=== PATIENT | male | born 1975 | race Caucasian/White ===

== ENCOUNTER 2020-06-05 11:15 | Inpatient (IN) ==
[2020-06-05] MEDS ORDERED: SODIUM CHLORIDE 0.9% 1000ML 1,000 ML IV ONE ×2 (11:42→13:12)
[2020-06-05 12:34] LABS: Hematocrit (blood only) 17.8 % (42-52); Mean Corpuscular Hemoglobin 30.5 pg (25-34); Mean Corpuscular Hgb Conc 33.7 g/dL (32-36); Mean Corpuscular Volume 90.4 fL (80-100); Mean Platelet Volume 11.5 fL (7.4-10.4); Nucleated RBC # (auto) 0.03 K/uL (0-0); Nucleated RBC % (auto) 0.2 %; Platelet Count 128 K/uL (130-400); RDW Coefficient of Variation 14.6 % (11.5-14.5); RDW Standard Deviation 47.9 fL (36.4-46.3); Red Blood Count 1.97 M/uL (4.7-6.1); White Blood Count 12.71 K/uL (4.8-10.8)
[2020-06-05 12:40] LABS: INR 1.1 (0.9-1.1); Partial Thromboplastin Ratio 0.8; Partial Thromboplastin Time 23.2 Seconds (21.0-31.0); Prothrombin Time 11.7 Seconds (9.0-12.0)
[2020-06-05 12:43] LABS: Basophils # (auto) 0.01 K/uL (0-0.2); Basophils % (auto) 0.1 %; Eosinophils # (auto) 0.02 K/uL (0-0.5); Eosinophils % (auto) 0.2 %; Immature Granulocytes # (auto) 0.03 K/uL (0.00-0.02); Immature Granulocytes % (auto) 0.2 %; Lymphocytes # (auto) 1.14 K/uL (1.2-3.4); Monocytes # (auto) 0.89 K/uL (0.11-0.59); Neutrophils # (auto) 10.62 K/uL (1.4-6.5); Neutrophils % (auto) 83.5 %; RBC Morphology Unremarkable
[2020-06-05 12:45] LABS: Alanine Aminotransferase 13 U/L (12-78); Albumin Level 2.7 gm/dl (3.4-5.0); Aspartate Aminotransferase 5 U/L (15-37); BUN Creatinine Ratio 58.5 (10-20); Bilirubin Direct < 0.1 mg/dl (0-0.2); Blood Urea Nitrogen 39 mg/dl (7-18); Calcium 7.3 mg/dl (8.5-10.1); Carbon Dioxide 23 mmol/L (21-32); Chloride 114 mmol/L (98-107); Creatinine Clr Calc Pharmacy 124.3 ml/min; Est GFR (African American) 133.6; Est GFR (Non-African American) 115.2; Glucose 118 mg/dl (70-99); Lipase 120 U/L (73-393); Magnesium 1.7 mg/dl (1.8-2.4); Potassium 3.7 mmol/L (3.5-5.1); Sodium 142 mmol/L (136-145)
[2020-06-05] MEDS ORDERED: SODIUM CHLORIDE 0.9% 250 ML IV PRN ×2 (12:48→20:43)
[2020-06-05] MEDS ORDERED: PANTOprazole 40 MG in SYRINGE 0 ML IV ONE (12:48)
[2020-06-05 12:59] LABS: Alkaline Phosphatase 32 U/L (45-117); Bilirubin,Total 0.1 mg/dl (0.2-1); Globulin 2.6 gm/dl (2.5-4.0); Phosphorus 1.8 mg/dl (2.5-4.9); Thyroid Stimulating Hormone 0.515 uIu/ml (0.300-4.500); Total Protein 5.3 gm/dl (6.4-8.2); Troponin I 0.134 ng/ml (0-0.045)
--- NOTE | 2020-06-05 13:06 | XRay Report ---
XR chest 1V portable HISTORY: Atypical Chest Pain COMPARISON: None. FINDINGS: Severe S-shaped scoliosis of the thoracolumbar spine. The cardiac silhouette is top normal in size. No pneumothorax. No pleural effusions. No focal lung consolidations to suggest pneumonia. No evidence for pulmonary edema. IMPRESSION: 1. No acute process within the chest. 2. Severe S-shaped scoliosis of the thoracolumbar spine. ACT 112: Negative or not required by law. Electronically signed by: Janak Goldberg M.D. 06/05/2020 1:05 PM
[2020-06-05 13:10] LABS: Appearance Urine Clear (Clear); Bilirubin Urine Negative (Negative); Blood Urine Negative (Negative); Color Urine Yellow; Glucose Urine UA Negative (Negative); Ketones Urine Trace (Negative); Leukocyte Esterase Urine Negative (Negative); Nitrite Urine Negative (Negative); Protein Urine Negative (Negative); Specific Gravity Urine 1.015 (1.000-1.030); Urobilinogen Urine Negative (Negative)
[2020-06-05] MEDS: MAGNESIUM SULFATE / D5W 1 GM/100 ML BAG IV SCH ×4 (13:14→18:10)
[2020-06-05] MEDS ORDERED: IOVERSOL 100ml IV ONE (13:35)
--- NOTE | 2020-06-05 13:48 | CT Scan Report ---
CT SCAN OF THE ABDOMEN AND PELVIS WITH IV CONTRAST CLINICAL HISTORY: Anemia. Melanotic stool. COMPARISON STUDY: No priors. TECHNIQUE: Following the IV administration of 93 cc of Optiray 320, CT scan of the abdomen and pelvi s is performed from the lung bases to the proximal femora. Images are reviewed in the axial, sagittal , and coronal planes. IV contrast was administered without complication. A dose lowering technique wa s utilized adhering to the principles of ALARA. CT DOSE: 290.52 mGy.cm FINDINGS: Lung bases: The heart is normal in size and without pericardial effusion. The lung bases are clear. Liver: The contrast-enhanced liver is normal in size, contour, and attenuation. There is no intrahepa tic biliary ductal dilatation. The hepatic veins and portal veins are patent. Gallbladder: There is a calcified gallstone with no CT evidence of acute cholecystitis. Spleen: Normal in size and attenuation. Pancreas: Unremarkable. Adrenal glands: Unremarkable. Kidneys: The contrast enhanced kidneys are normal in size and without hydronephrosis. The kidneys enh ance symmetrically. A 1.6 cm cyst is noted in the right kidney. A subcentimeter cortical hypodensity in the left kidney also likely represents a cyst but is too small for definitive characterization. Abdominal vasculature: The abdominal aorta is normal in course and caliber noting mild atheroscleroti c calcification. Bowel: The small bowel and colon are normal in course and caliber. The appendix is well-visualized a nd normal. Peritoneum: There is no intraperitoneal free air or abdominal ascites. Lymphadenopathy: None. Pelvic viscera: The bladder is distended but otherwise normal in appearance. The prostate and seminal vesicles are normal as visualized. Skeletal structures: No lytic or blastic lesions are seen. There is moderate thoracolumbar scoliosis. There are bilateral pars defects at L5. IMPRESSION: 1. There are no acute infectious or inflammatory findings in the abdomen or pelvis. 2. Cholelithiasis. ACT 112: Negative or not required by law. Electronically signed by: Osbaldo Savage M.D. 06/05/2020 1:46 PM
--- NOTE | 2020-06-05 13:52 | Emergency Department Note ---
Impression & Plan Symptomatic anemia, WPW (Rfenk-Jvrwmgnxu-Svdnw syndrome), Acute upper gastrointestinal bleeding, SVT (supraventricular tachycardia), Hypomagnesemia, Hypophosphatemia ED Provider Note NAME: GREGG [id number] Nisreen DETEMPLE AGE: 45 SEX: M ARRIVES VIA: Ambulance INFORMANT: Patient, ED PROVIDER(S): Kris Urban MD CHIEF COMPLAINT: Palpitations, weakness PLAN: Disposition: Admit MEDICAL DECISION MAKING: The patient is a pleasant 45-year-old gentleman, current inmate at [facility] who presents emergency department after having episode of tachycardia with heart racing, lightheadedness that he noticed today found to have a heart rate in the low 200s but he was given adenosine by EMS prior to arrival with subsequent improvement in rate to the 130s-140s and improvement in symptoms. Prior to today the patient denies any fevers, cough, nausea, vomiting, diarrhea. However, he does report noticing black stool over the past 48 hours and having increased shortness of breath with exertion and sensing repeat episodes of his heart racing but these stopped on their own. He reports his history of WPW intermittently recurs but resolves on its own. He reports he is not on medications for this. On arrival the patient is fatigued appearing but no acute distress, with temp of 37.7 and heart rate in the 130s and vital signs otherwise stable. He appears clinically dry with mild pallor to his skin. Abdomen is benign. Rectal exam does demonstrate melena that is Hemoccult positive. EKG demonstrates sinus tachycardia without overt ST elevation. WBC 12.7, nonspecific. H/H 6/17.8 without prior values for comparison. Platelets 128K also without prior values for comparison. Chemistry without acidosis. BUN is elevated at 39, which in the setting of the patient's melena is suggestive of upper GI bleed. Phosphorus 1.8 and magnesium 1.7 with repletion provided. Troponin 0.134 likely related to demand in the setting of the patient's heart rate and anemia. COVID-19 RNA, NAAT test was negative. UA negative for infection. Patient was consented and ordered for 2 units PRBCs for his symptomatic anemia. Of note, the patient did have a recurrence of his SVT to the 200s following a bowel movement which eventually resolved spontaneously and did not require additional antiarrhythmics. Given the patient's anemia we will proceed with transfusion and hold on additional antiarrhythmics for now unless his episode recurs. CT abdomen pelvis was performed and negative for acute process. Patient is agreeable with recommendation for admission. Case was discussed with Dr. Cotton, [facility] hospitalist, who will evaluate the patient for admission. Triage Nursing notes reviewed and agree them. Prior medical records reviewed Vital Signs: reviewed and remarkable for no significant abnormalities Differential diagnosis: Premature contractions, electrolyte abnormality, cardiac dysrhythmia, thyroid dysfunction, pulmonary embolism, infection, gastrointestinal, as well as other pathologies. ER treatment provided: See below. Diagnostics interpreted by me: ECG: Sinus tachycardia, 130 bpm, no ectopy, no overt ST elevation or depression, QTC 441, QRS 84. Cardiac Monitoring: An order for continuous cardiac monitoring was placed and demonstrated Sinus tachycardia, 130 bpm, no ectopy, brief episode of SVT to 200s. Laboratory studies: See below Imaging studies: CT SCAN OF THE ABDOMEN AND PELVIS WITH IV CONTRAST CLINICAL HISTORY: Anemia. Melanotic stool. COMPARISON STUDY: No priors. TECHNIQUE: Following the IV administration of 93 cc of Optiray 320, CT scan of the abdomen and pelvis is performed from the lung bases to the proximal femora. Images are reviewed in the axial, sagittal, and coronal planes. IV contrast was administered without complication. A dose lowering technique was utilized adher ing to the principles of ALARA. CT DOSE: 290.52 mGy.cm FINDINGS: Lung bases: The heart is normal in size and without pericardial effusion. The lung bases are clear. Liver: The contrast-enhanced liver is normal in size, contour, and attenuation. There is no intrahepatic biliary ductal dilatation. The hepatic veins and portal veins are patent. Gallbladder: There is a calcified gallstone with no CT evidence of acute cholecystitis. Spleen: Normal in size and attenuation. Pancreas: Unremarkable. Adrenal glands: Unremarkable. Kidneys: The contrast enhanced kidneys are normal in size and without hydronephrosis. The kidneys enhance symmetrically. A 1.6 cm cyst is noted in the right kidney. A subcentimeter cortical hypodensity in the left kidney also likely represents a cyst but is too small for definitive characterization. Abdominal vasculature: The abdominal aorta is normal in course and caliber noting mild atherosclerotic calcification. Bowel: The small bowel and colon are normal in course and caliber. The appendix is well-visualized and normal. Peritoneum: There is no intraperitoneal free air or abdominal ascites. Lymphadenopathy: None. Pelvic viscera: The bladder is distended but otherwise normal in appearance. The prostate and seminal vesicles are normal as visualized. Skeletal structures: No lytic or blastic lesions are seen. There is moderate thoracolumbar scoliosis. There are bilateral pars defects at L5. IMPRESSION: 1. There are no acute infectious or inflammatory findings in the abdomen or pelvis. 2. Cholelithiasis. Consultation(s): Case was discussed with Dr. Adams, [facility] hospitalist, who will evaluate the patient for admission. HPI: The patient is a pleasant 45-year-old gentleman, current inmate at [facility] who presents emergency department after having episode of tachycardia with heart racing, lightheadedness that he noticed today found to have a heart rate in the low 200s but he was given adenosine by EMS prior to arrival with subsequent improvement in rate to the 130s-140s and improvement in symptoms. Prior to today the patient denies any fevers, cough, nausea, vomiting, diarrhea. However, he does report noticing black stool over the past 48 hours and having increased shortness of breath with exertion and sensing repeat episodes of his heart racing but these stopped on their own. He reports his history of WPW intermittently recurs but resolves on its own. He reports he is not on medications for this. ROS: See above HPI for pertinent positives & negatives. A total of 10 systems reviewed and were otherwise negative. PAST MEDICAL HISTORY:See Below PAST SURGICAL HISTORY:See Below FAMILY HISTORY:See Below SOCIAL HISTORY:See Below HOME MEDICATIONS:See Below ALLERGIES:See Below VITALS:See Below PHYSICAL EXAMINATION: GENERAL: Awake, alert, fatigued-appearing, in no distress HENT: Normocephalic, atraumatic. Oropharynx with dry mucous membranes and otherwise unremarkable. EYES: Normal conjunctiva. Sclera non-icteric. NECK: Supple. No nuchal rigidity. FROM. No JVD. RESPIRATORY: Clear to auscultation. CARDIAC: Regular rate, normal rhythm. Extremities warm and well perfused. Pulses equal. ABDOMEN: Soft, non-distended. No tenderness to palpation. No rebound or guarding. No masses. RECTAL: Melena. Hemoccult positive. MUSCULOSKELETAL: Chest examination reveals no tenderness. The back is symmetrical on inspection without obvious abnormality. There is no CVA tenderness to palpation. No joint edema. LOWER EXTREMITIES: Calves are equal size bilaterally and non-tender. No edema. No discoloration. NEURO: Normal sensorium. No sensory or motor deficits noted. SKIN: Moderate pallor. No rash or jaundice noted. ED COURSE: Critical Care: I have personally spent greater than 75 minutes of critical care time in the direct management of this patient. This includes bedside care, interpretation of diagnostic studies, and testing, discussion with consultants, patient, and family members, and other required patient management activities. This 75 minutes is in excess of all separately billable procedures. 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/o ablation Surgical History H/O hernia repair in his 20s - inguinal Family History Other Unknown family medical history Social History Smoking Status: Former smoker Tobacco Type: Cigarettes Smoking End Date: quit when prisons banned tobacco; Second Hand Exposure: No; Do You Dip or Chew Tobacco: No; Hx Alcohol Use: No Hx Substance Use: No Preferred Language: Ecuadorean Communication Ability: Effective Beliefs That Will Affect Care: None Current Living Situation: Other Current Living Situation Comment: [facility] current occupational status: other Other Information That Helps Us Care for You: No Feels Safe at Home: Yes Safety Concerns: Feels Safe At This Time Assistive Devices: None Allergies Allergies Allergy/AdvReac Type Severity Reaction Status Date / Time aspirin AdvReac Unknown Unknown Unverified 06/05/20 11:48 Home Meds Home Medications Medication Instructions Recorded Confirmed No Known Home Medications 06/05/20 06/05/20 Results & Data (ED) Vital Signs Vital Signs - 24 hr 06/05/20 11:21 06/05/20 12:04 06/05/20 14:04 Temperature 37.7 C H Temperature Source Oral Pulse Rate 132 H Pulse Rate [Apical] 133 H 139 H Respiratory Rate 18 16 20 Respiratory Effort / Characteristics Non-Labored Spontaneous Respiratory Depth Normal Respiratory Pattern Regular Blood Pressure 129/74 Blood Pressure [Right Arm] 133/77 122/78 Blood Pressure Mean 92 Blood Pressure Mean [Right Arm] 95 92 Pulse Oximetry 97 100 97 Oxygen Delivery Method Room Air Room Air Room Air Sepsis Recent Fever Within 48 Hours No Sepsis New/Unexplained Change in Mental Status No Sepsis Action Taken by Nursing No Action Required 06/05/20 14:36 06/05/20 14:42 06/05/20 15:03 Temperature 38 C H 38.1 C H Temperature Source Oral Oral Pulse Rate 147 H 142 H 138 H Pulse Rate [Apical] Respiratory Rate 18 20 20 Respiratory Effort / Characteristics Respiratory Depth Respiratory Pattern Blood Pressure 124/88 120/83 112/79 Blood Pressure [Right Arm] Blood Pressure Mean 100 95 90 Blood Pressure Mean [Right Arm] Pulse Oximetry 100 99 98 Oxygen Delivery Method Sepsis Recent Fever Within 48 Hours Sepsis New/Unexplained Change in Mental Status Sepsis Action Taken by Nursing 06/05/20 15:08 06/05/20 15:37 06/05/20 15:46 Temperature 38.1 C H 37.7 C H 38 C H Temperature Source Oral Oral Oral Pulse Rate 138 H 124 H 136 H Pulse Rate [Apical] Respiratory Rate 20 20 20 Respiratory Effort / Characteristics Respiratory Depth Respiratory Pattern Blood Pressure 124/84 119/91 120/88 Blood Pressure [Right Arm] Blood Pressure Mean 97 100 98 Blood Pressure Mean [Right Arm] Pulse Oximetry 98 98 Oxygen Delivery Method Sepsis Recent Fever Within 48 Hours Sepsis New/Unexplained Change in Mental Status Sepsis Action Taken by Nursing Laboratory Data Attestation: I reviewed the patient's lab results. Result diagrams: 06/05/20 19:51 06/05/20 12:14 Lab Results 06/05/20 06/05/20 06/05/20 Range/Units 11:50 11:50 12:14 WBC 12.71 H (4.8-10.8) K/uL RBC 1.97 L (4.7-6.1) M/uL Hgb 6.0 L* (14.0-18.0) g/dL Hct 17.8 L* (42-52) % MCV 90.4 (80-100) fL MCH 30.5 (25-34) pg MCHC 33.7 (32-36) g/dL RDW Std Deviation 47.9 H (36.4-46.3) fL RDW Coeff of Sherron 14.6 H (11.5-14.5) % Plt Count 128 L (130-400) K/uL MPV 11.5 H (7.4-10.4) fL Immature Gran % (Auto) 0.2 % Neut % (Auto) 83.5 % Lymph % (Auto) 9.0 % [place] % (Auto) 7.0 % Eos % (Auto) 0.2 % Baso % (Auto) 0.1 % Neut # (Auto) 10.62 H (1.4-6.5) K/uL Lymph # (Auto) 1.14 L (1.2-3.4) K/uL [place] # (Auto) 0.89 H (0.11-0.59) K/uL Eos # (Auto) 0.02 (0-0.5) K/uL Baso # (Auto) 0.01 (0-0.2) K/uL Immature Gran # (Auto) 0.03 H (0.00-0.02) K/uL Absolute Nucleated RBC 0.03 H (0-0) K/uL Nucleated RBC % (auto) 0.2 % RBC Morphology Unremarkable PT (9.0-12.0) Seconds INR (0.9-1.1) APTT (21.0-31.0) Seconds PTT Ratio Sodium (136-145) mmol/L Potassium (3.5-5.1) mmol/L Chloride (98-107) mmol/L Carbon Dioxide (21-32) mmol/L Anion Gap (3-11) BUN (7-18) mg/dl Creatinine (0.6-1.4) mg/dl Est Cr Clr Drug Dosing ml/min Est GFR ( Amer) Est GFR (Non-Af Amer) BUN/Creatinine Ratio (10-20) Glucose (70-99) mg/dl Calcium (8.5-10.1) mg/dl Phosphorus (2.5-4.9) mg/dl Magnesium (1.8-2.4) mg/dl Transferrin (200-360) mg/dl Ferritin (8-388) ng/ml Total Bilirubin (0.2-1) mg/dl Direct Bilirubin (0-0.2) mg/dl AST (15-37) U/L ALT (12-78) U/L Alkaline Phosphatase (45-117) U/L Troponin I (0-0.045) ng/ml Total Protein (6.4-8.2) gm/dl Albumin (3.4-5.0) gm/dl Globulin (2.5-4.0) gm/dl Albumin/Globulin Ratio (0.9-2) Lipase (73-393) U/L Procalcitonin (0-0.5) ng/ml TSH (0.300-4.500) uIu/ml Urine Color Urine Appearance (Clear) Urine pH (4.5-7.5) Ur Specific [place] (1.000-1.030) Urine Protein (Negative) Urine Glucose (UA) (Negative) Urine Ketones (Negative) Urine Blood (Negative) Urine Nitrite (Negative) Urine Bilirubin (Negative) Urine Urobilinogen (Negative) Ur Leukocyte Esterase (Negative) COVID-19 Eval [facility] SARS-[facility]-2, RNA, NAAT NEGATIVE (NEGATIVE) Blood Type Blood Type Recheck Antibody Screen Crossmatch 06/05/20 06/05/20 06/05/20 Range/Units 12:14 12:14 12:14 WBC (4.8-10.8) K/uL RBC (4.7-6.1) M/uL Hgb (14.0-18.0) g/dL Hct (42-52) % MCV (80-100) fL MCH (25-34) pg MCHC (32-36) g/dL RDW Std Deviation (36.4-46.3) fL RDW Coeff of Sherron (11.5-14.5) % Plt Count (130-400) K/uL MPV (7.4-10.4) fL Immature Gran % (Auto) % Neut % (Auto) % Lymph % (Auto) % [place] % (Auto) % Eos % (Auto) % Baso % (Auto) % Neut # (Auto) (1.4-6.5) K/uL Lymph # (Auto) (1.2-3.4) K/uL [place] # (Auto) (0.11-0.59) K/uL Eos # (Auto) (0-0.5) K/uL Baso # (Auto) (0-0.2) K/uL Immature Gran # (Auto) (0.00-0.02) K/uL Absolute Nucleated RBC (0-0) K/uL Nucleated RBC % (auto) % RBC Morphology PT 11.7 (9.0-12.0) Seconds INR 1.1 (0.9-1.1) APTT 23.2 (21.0-31.0) Seconds PTT Ratio 0.8 Sodium 142 (136-145) mmol/L Potassium 3.7 (3.5-5.1) mmol/L Chloride 114 H (98-107) mmol/L Carbon Dioxide 23 (21-32) mmol/L Anion Gap 5.0 (3-11) BUN 39 H (7-18) mg/dl Creatinine 0.67 (0.6-1.4) mg/dl Est Cr Clr Drug Dosing 124.3 ml/min Est GFR ( Amer) 133.6 Est GFR (Non-Af Amer) 115.2 BUN/Creatinine Ratio 58.5 H (10-20) Glucose 118 H (70-99) mg/dl Calcium 7.3 L (8.5-10.1) mg/dl Phosphorus 1.8 L (2.5-4.9) mg/dl Magnesium 1.7 L (1.8-2.4) mg/dl Transferrin (200-360) mg/dl Ferritin (8-388) ng/ml Total Bilirubin 0.1 L (0.2-1) mg/dl Direct Bilirubin < 0.1 (0-0.2) mg/dl AST 5 L (15-37) U/L ALT 13 (12-78) U/L Alkaline Phosphatase 32 L (45-117) U/L Troponin I 0.134 H* (0-0.045) ng/ml Total Protein 5.3 L (6.4-8.2) gm/dl Albumin 2.7 L (3.4-5.0) gm/dl Globulin 2.6 (2.5-4.0) gm/dl Albumin/Globulin Ratio 1.0 (0.9-2) Lipase 120 (73-393) U/L Procalcitonin (0-0.5) ng/ml TSH 0.515 (0.300-4.500) uIu/ml Urine Color Urine Appearance (Clear) Urine pH (4.5-7.5) Ur Specific [place] (1.000-1.030) Urine Protein (Negative) Urine Glucose (UA) (Negative) Urine Ketones (Negative) Urine Blood (Negative) Urine Nitrite (Negative) Urine Bilirubin (Negative) Urine Urobilinogen (Negative) Ur Leukocyte Esterase (Negative) COVID-19 Eval Order SARS-CoV-2, RNA, NAAT (NEGATIVE) Blood Type Blood Type Recheck A Positive Antibody Screen Crossmatch 06/05/20 06/05/20 06/05/20 Range/Units 12:20 12:24 12:50 WBC (4.8-10.8) K/uL RBC (4.7-6.1) M/uL Hgb (14.0-18.0) g/dL Hct (42-52) % MCV (80-100) fL MCH (25-34) pg MCHC (32-36) g/dL RDW Std Deviation (36.4-46.3) fL RDW Coeff of Sherron (11.5-14.5) % Plt Count (130-400) K/uL MPV (7.4-10.4) fL Immature Gran % (Auto) % Neut % (Auto) % Lymph % (Auto) % [place] % (Auto) % Eos % (Auto) % Baso % (Auto) % Neut # (Auto) (1.4-6.5) K/uL Lymph # (Auto) (1.2-3.4) K/uL [place] # (Auto) (0.11-0.59) K/uL Eos # (Auto) (0-0.5) K/uL Baso # (Auto) (0-0.2) K/uL Immature Gran # (Auto) (0.00-0.02) K/uL Absolute Nucleated RBC (0-0) K/uL Nucleated RBC % (auto) % RBC Morphology PT (9.0-12.0) Seconds INR (0.9-1.1) APTT (21.0-31.0) Seconds PTT Ratio Sodium (136-145) mmol/L Potassium (3.5-5.1) mmol/L Chloride (98-107) mmol/L Carbon Dioxide (21-32) mmol/L Anion Gap (3-11) BUN (7-18) mg/dl Creatinine (0.6-1.4) mg/dl Est Cr Clr Drug Dosing ml/min Est GFR ( Amer) Est GFR (Non-Af Amer) BUN/Creatinine Ratio (10-20) Glucose (70-99) mg/dl Calcium (8.5-10.1) mg/dl Phosphorus (2.5-4.9) mg/dl Magnesium (1.8-2.4) mg/dl Transferrin 201 (200-360) mg/dl Ferritin 13.6 (8-388) ng/ml Total Bilirubin (0.2-1) mg/dl Direct Bilirubin (0-0.2) mg/dl AST (15-37) U/L ALT (12-78) U/L Alkaline Phosphatase (45-117) U/L Troponin I (0-0.045) ng/ml Total Protein (6.4-8.2) gm/dl Albumin (3.4-5.0) gm/dl Globulin (2.5-4.0) gm/dl Albumin/Globulin Ratio (0.9-2) Lipase (73-393) U/L Procalcitonin < 0.05 (0-0.5) ng/ml TSH (0.300-4.500) uIu/ml Urine Color Yellow Urine Appearance Clear (Clear) Urine pH 6.0 (4.5-7.5) Ur Specific [place] 1.015 (1.000-1.030) Urine Protein Negative (Negative) Urine Glucose (UA) Negative (Negative) Urine Ketones Trace H (Negative) Urine Blood Negative (Negative) Urine Nitrite Negative (Negative) Urine Bilirubin Negative (Negative) Urine Urobilinogen Negative (Negative) Ur Leukocyte Esterase Negative (Negative) COVID-19 Eval Order SARS-CoV-2, RNA, NAAT (NEGATIVE) Blood Type Blood Type Recheck Antibody Screen Crossmatch 06/05/20 Range/Units 13:22 WBC (4.8-10.8) K/uL RBC (4.7-6.1) M/uL Hgb (14.0-18.0) g/dL Hct (42-52) % MCV (80-100) fL MCH (25-34) pg MCHC (32-36) g/dL RDW Std Deviation (36.4-46.3) fL RDW Coeff of Sherron (11.5-14.5) % Plt Count (130-400) K/uL MPV (7.4-10.4) fL Immature Gran % (Auto) % Neut % (Auto) % Lymph % (Auto) % [place] % (Auto) % Eos % (Auto) % Baso % (Auto) % Neut # (Auto) (1.4-6.5) K/uL Lymph # (Auto) (1.2-3.4) K/uL [place] # (Auto) (0.11-0.59) K/uL Eos # (Auto) (0-0.5) K/uL Baso # (Auto) (0-0.2) K/uL Immature Gran # (Auto) (0.00-0.02) K/uL Absolute Nucleated RBC (0-0) K/uL Nucleated RBC % (auto) % RBC Morphology PT (9.0-12.0) Seconds INR (0.9-1.1) APTT (21.0-31.0) Seconds PTT Ratio Sodium (136-145) mmol/L Potassium (3.5-5.1) mmol/L Chloride (98-107) mmol/L Carbon Dioxide (21-32) mmol/L Anion Gap (3-11) BUN (7-18) mg/dl Creatinine (0.6-1.4) mg/dl Est Cr Clr Drug Dosing ml/min Est GFR ( Amer) Est GFR (Non-Af Amer) BUN/Creatinine Ratio (10-20) Glucose (70-99) mg/dl Calcium (8.5-10.1) mg/dl Phosphorus (2.5-4.9) mg/dl Magnesium (1.8-2.4) mg/dl Transferrin (200-360) mg/dl Ferritin (8-388) ng/ml Total Bilirubin (0.2-1) mg/dl Direct Bilirubin (0-0.2) mg/dl AST (15-37) U/L ALT (12-78) U/L Alkaline Phosphatase (45-117) U/L Troponin I (0-0.045) ng/ml Total Protein (6.4-8.2) gm/dl Albumin (3.4-5.0) gm/dl Globulin (2.5-4.0) gm/dl Albumin/Globulin Ratio (0.9-2) Lipase (73-393) U/L Procalcitonin (0-0.5) ng/ml TSH (0.300-4.500) uIu/ml Urine Color Urine Appearance (Clear) Urine pH (4.5-7.5) Ur Specific [place] (1.000-1.030) Urine Protein (Negative) Urine Glucose (UA) (Negative) Urine Ketones (Negative) Urine Blood (Negative) Urine Nitrite (Negative) Urine Bilirubin (Negative) Urine Urobilinogen (Negative) Ur Leukocyte Esterase (Negative) COVID-19 Eval Order SARS-CoV-2, RNA, NAAT (NEGATIVE) Blood Type A Positive Blood Type Recheck Antibody Screen NEGATIVE Crossmatch See Detail Administered Medications Potassium Chloride/Dextrose/Sod Cl (D5nss + 20meq Kcl) 20 meq in 1,000 mls @ 125 mls/hr IV .Q8H SHANNON Stop: 07/05/20 15:59 Last Admin: 06/05/20 17:33 Dose: 125 mls/hr Documented by: [id number] Pantoprazole Sodium 40 mg/ (Dextrose) 100 mls @ 20 mls/hr IV Q5H SHANNON Stop: 07/05/20 17:19 Last Admin: 06/05/20 17:34 Dose: 8 mg/hr, 20 mls/hr Documented by: [id number] Discontinued Medications Acetaminophen (Acetaminophen 500 Mg Tab) 1,000 mg PO NOW STA Stop: 06/05/20 15:54 Last Admin: 06/05/20 16:07 Dose: 1,000 mg Documented by: [id number] Sodium Chloride (Nss 1000ml) 1,000 mls @ 999 mls/hr IV .Q1H1M ONE Stop: 06/05/20 12:42 Last Infusion: 06/05/20 12:45 Dose: 0 mls/hr Documented by: [id number] Admin: 06/05/20 11:58 Dose: 999 mls/hr Documented by: [id number] Magnesium Sulfate/Dextrose (Magnesium Sulfate / D5w) 1 gm in 100 mls @ 100 mls/hr IV Q1H SHANNON Stop: 06/05/20 14:47 Last Infusion: 06/05/20 15:19 Dose: 0 mls/hr Documented by: [id number] Admin: 06/05/20 14:19 Dose: 100 mls/hr Documented by: [id number] Infusion: 06/05/20 14:17 Dose: 0 mls/hr Documented by: [id number] Admin: 06/05/20 13:14 Dose: 100 mls/hr Documented by: [id number] Pantoprazole Sodium 40 mg/ (Syringe) 10 mls @ 5 mls/min IV NOW ONE Stop: 06/05/20 12:49 Last Admin: 06/05/20 14:04 Dose: 5 mls/min Documented by: [id number] Sodium Chloride (Nss 1000ml) 1,000 mls @ 999 mls/hr IV .Q1H1M ONE Stop: 06/05/20 14:12 Last Infusion: 06/05/20 14:23 Dose: 0 mls/hr Documented by: [id number] Admin: 06/05/20 13:14 Dose: 999 mls/hr Documented by: [id number] Magnesium Sulfate/Dextrose (Magnesium Sulfate / D5w) 1 gm in 100 mls @ 100 mls/hr IV Q1H SHANNON Stop: 06/05/20 16:11 Last Infusion: 06/05/20 19:27 Dose: 0 mls/hr Documented by: [id number] Admin: 06/05/20 18:10 Dose: 100 mls/hr Documented by: [id number] Admin: 06/05/20 15:20 Dose: Not Given Documented by: [id number] Potassium Phosphate 15 mmol/ (Sodium Chloride) 255 mls @ 102 mls/hr IV ONE ONE Stop: 06/05/20 16:59 Last Infusion: 06/05/20 18:12 Dose: 0 mls/hr Documented by: [id number] Admin: 06/05/20 15:20 Dose: 102 mls/hr Documented by: [id number] Ioversol (Ioversol 100ml) 93 ml IV ONCE ONE Stop: 06/05/20 13:36 Last Admin: 06/05/20 13:35 Dose: 93 ml Documented by: [id number] Discharge Plan Visit Data Chief Complaint: Cardiac Assessment Stated Complaint: Cardiac ED Provider: Kris Urban Discharge Problem: Symptomatic anemia, WPW (Vdpbw-Ezrhgwsxs-Hiizy syndrome), Acute upper gastr ointestinal bleeding, SVT (supraventricular tachycardia), Hypomagnesemia, Hypophosphatemia Patient Disposition: Admitted As Inpatient Discharge Instructions Interventions: ED Discharge Assessment Last Done: 06/05/20 16:12
[2020-06-05] MEDS ORDERED: POTASSIUM PHOS 3 MMOL/1 ML INFUSION IV STA (14:11)
[2020-06-05] MEDS ORDERED: POTASSIUM PHOSPHATE 15 MMOL in SODIUM CHLORIDE 0.9% 250 ML IV ONE (14:30)
[2020-06-05 14:38] LABS: Ferritin 13.6 ng/ml (8-388)
--- NOTE | 2020-06-05 15:21 | History & Physical Report ---
Date of Service June 05, 2020 Assessment & Plan (1) Acute upper gastrointestinal bleeding: Per ER attending his [facility] revealed gross melena with heme+ stool. Patient himself has had melena for the past 2 days. Ferritin is very low suggesting chronic GI blood loss for much, much longer time period than just 2 days. Sedq-sof-muon he has severe symptomatic anemia from his GI blood loss. NPO. IV PPI drip. IV fluids. Tx 2 units PRBCs now; may need additional units beyond that. I spoke with Dr Franco from [facility] who will consult in am and likely perform endoscopic evaluation. No PUD risk factors other than occasional motrin use. Await EGD, other testing. Consider IV venofer while here. (2) Acute blood loss anemia: as above. Tx PRBCs. trend his CBC. checked FE studies - c/w severe Fe deficiency anemia. (3) Symptomatic anemia: as above. interestingly, despite melena stool and Fe deficiency, his MCV is normal suggesting "mixed" picture. check b12/folate levels. replace as needed. Tx PRBCs. (4) WPW (Qmgfw-Pjslxywwx-Fnlab syndrome): history of such. no prior ablation procedure. I have asked Dr Ross from [facility] cardiology to consult for this issue. Treat the anemia. Place on telemetry. Keep electrolytes wnl. (5) Hypomagnesemia: replete, repeat level am (6) History of asthma: noted asymptomatic at this time (7) Migraines: none at this time (8) Fever: low grade temp of 37.7 at time of presentation today. this was BEFORE the packed red cells were given. COVID0 [address] abd/pelvis without source of fever/infection. cxr negative. need to follow temps carefully. there has been considerable COVID at the custodial where he lives - if fevers persist consider repeat COVID test. (9) DVT prophylaxis: SCDs chemical means contraindicated History of Present Illness Chief Complaint: dark stools Primary Care Provider: [facility] 45yo male with history of WPW syndrome presents with 2 days of dark stools. He also noted tachycardia 2 days ago when he first noted the dark stools. He had associated dyspnea when the tachycardia occurred. His tachycardia is particularly noticeable when he is trying to have a bowel movement. In between episodes of tachycardia and the dark stools he states "I feel fine." He then had tachycardia with dyspnea yesterday during another bowel movement episode. The stool was again once dark. Upon arrival to [facility] today hemoglobin VERY low at 6. He adamantly reports he has had NO melena or BRBPR on chronic basis prior to 2 days ago. He mentions a h/o "IBS" and chronic diarrhea. States that about 20 years ago he was diagnosed with "malnourishment" and Fe deficiency along with "some other deficiency." He denies ever having ablation or Rx for his WPW syndrome. Occasional motrin use for migraines but nothing on regular basis. By ER personnel report the patient had narrow complex tachycardia up to about 200 BPM after he got up to use the bathroom. While having a bowel movement the HR improved from 200 back down to 130s. Allergies Allergy/AdvReac Type Severity Reaction Status Date / Time aspirin AdvReac Unknown Unknown Unverified 06/05/20 11:48 Home Medications Medication Instructions Recorded Confirmed Type No Known Home Medications 06/05/20 06/05/20 History Past Med/Surg History Medical History H/O caloric malnutrition H/O iron deficiency History of asthma Migraines Pectus excavatum Scoliosis WPW (Fvyjf-Ogphwrrmt-Lcozh syndrome) no h/o ablation Surgical History H/O hernia repair in his 20s - inguinal Family History Other Unknown family medical history Social History Smoking Status: Former smoker Tobacco Type: Cigarettes Smoking End Date: quit when prisons banned tobacco; Second Hand Exposure: No; Do You Dip or Chew Tobacco: No; Hx Alcohol Use: No Hx Substance Use: No Preferred Language: Korean Communication Ability: Effective Beliefs That Will Affect Care: None Current Living Situation: Other Current Living Situation Comment: custodial current occupational status: other Other Information That Helps Us Care for You: No Feels Safe at Home: Yes Safety Concerns: Feels Safe At This Time Assistive Devices: None Review of Systems Constitutional: no fever, no chills, no fatigue, no anorexia and no weight loss Eyes: no worsening vision Ear, Nose, Mouth, Throat: + sore throat (today only) Respiratory: + dyspnea on exertion; no cough Cardiovascular: + palpitations and + lightheadedness; no chest pain and no edema Gastrointestinal: + abdominal pain (upper - occasional), + diarrhea/loose stools (chronic -- due to "IBS") and + melena; no nausea and no vomiting Genitourinary: no dysuria Musculoskeletal: + back pain Integumentary: no rash Neurologic: no loss of sensation Psychiatric: no depression and no anxiety Endocrine: no h/o diabetes Hematologic / Lymphatic: no easy bleeding Physical Exam Constitutional: + thin; + not well developed, + not well nourished, no acute distress and no altered mental status Eyes: PERRL ENMT: Mouth: + tongue abnormality; oral mucous membranes not dry Neck: trachea midline, no thyromegaly Respiratory: normal respiratory effort, lungs clear to auscultation Cardiovascular: Rate/Rhythm: regular rhythm and + tachycardic Heart Sounds: normal S1 and normal S2; no murmur Vessels: posterior tibial pulses present and dorsalis pedis pulses present; no JVD Extremities: no edema Chest (Breasts): Chest: + abnormal inspection of chest (Very minimal pectus deformity ) Gastrointestinal (Abdomen): normal bowel sounds, soft, nontender, no hepatosplenomegaly Musculoskeletal: no cyanosis or clubbing, extremities motor strength 5/5 Spine: + scoliosis Skin: + pallor Neurologic: moves all extremities; no focal motor deficits Psychiatric: Orientation: alert and oriented x 3 Lymphatic: no cervical lymphadenopathy Results & Data Results & Data ([facility]) Vital Signs (Past 12 Hours) Vital Signs Temp Pulse Pulse Resp BP BP Pulse Ox 06/05/20 15:08 38.1 C H 138 H 20 124/84 98 06/05/20 15:03 138 H 20 112/79 98 06/05/20 14:42 38.1 C H 142 H 20 120/83 99 06/05/20 14:36 38 C H 147 H 18 124/88 100 06/05/20 14:04 139 H 20 122/78 97 06/05/20 12:04 133 H 16 133/77 100 06/05/20 11:21 37.7 C H 132 H 18 129/74 97 presenting Hb 6 albumin 2.7 Cr 0.67 ferritin 13 b12 290 folate wnl Diagnostic Findings CT abd/pelvis - no acute findings; gallstones EKG - sinus tach, no acute ST changes, no obvious delta wave cxr - no infiltrates; scolisosi Code Status & VTE Plan Code Status full VTE Prophylaxis Plan VTE Prophylaxis will be ordered: Yes PG Care Time/CCT Total # of Minutes Spent Total Time Spent with Patient: Total time spent is greater than 50% in coordination of care (as documented) at patient's floor/unit and/or counseling patient: Coding Level of Care Code 74247 Initial Inpt Care Lvl 3 Diagnoses Acute upper gastrointestinal bleeding K92.2 Acute blood loss anemia D62 Symptomatic anemia D64.9 WPW (Hktro-Ffcmqffjw-Ktfsd syndrome) I45.6 Hypomagnesemia E83.42 History of asthma Z87.09 Migraines G43.909 Fever R50.9 DVT prophylaxis Z29.9
--- NOTE | 2020-06-05 15:37 | Electrocardiogram Report ---
Test Reason : Blood Pressure : / mmHG Vent. Rate : 130 BPM Atrial Rate : 130 BPM P-R Int : 148 ms QRS Dur : 084 ms QT Int : 300 ms P-R-T Axes : 042 038 021 degrees QTc Int : 441 ms Poor data quality, interpretation may be adversely affected Sinus tachycardia Poor R wave progression, consider anterior [place] vs. lead placement vs. LVH Otherwise normal ECG No previous ECGs available Confirmed by Omi Ross ([id number]) on 06/05/2020 3:36:36 PM Referred By: [facility] Confirmed By:Rudolph Ross
[2020-06-05] MEDS ORDERED: ACETAMINOPHEN 500 MG TAB PO STA (15:53)
--- NOTE | 2020-06-05 16:58 | Cardiology Consultation ---
Date of Consultation June 05, 2020 Assessment & Plan (1) SVT (supraventricular tachycardia): He had a recorded episode of SVT during his emergency room evaluation. This was a narrow complex rhythm. His baseline EKG does not demonstrate any pre-excitation, although he is tachycardic at baseline and could have pre- excitation at lower heart rates. Without evidence of pre-excitation this represents a relatively benign phenomenon. His history would suggest the same as he has had frequent episodes over several decades. Even with evidence of pre-excitation at slower heart rates, is not likely to be a life-threatening or serious issue given his relatively advanced age. He may be more symptomatic currently and have higher heart rates currently due to his other metabolic derangements, specifically his profound anemia. While he may continue to have episodes of SVT, I suspect they will be less symptomatic and relatively slower once he has received his transfusion and volume resuscitation. I believe most of his episodes will be self-limited. He is fairly well-versed in the use of vagal maneuvers. However, for extended episodes adenosine could be used. Do not think he requires prophylactic treatment with either antiarrhythmics or AV shannon agents. I would hesitate to use AV shannon agents until we are confident he does not have some element of pre-excitation at lower heart rates. At some point we can have a discussion regarding catheter based therapy per (2) Elevated troponin: This is undoubtedly related to periods of tachycardia in the setting of profound anemia. Do not believe this is public health representative of an acute coronary syndrome. Chest pain does not appear to be a feature of his presentation. Treating his anemia and tachycardia are the primary concerns. As noted above, I think he will continue to have some episodes of tachycardia as this has been his pattern over many years. However, with improvement in his blood counts, I think we can avoid additional demand ischemia. I do not believe he requires any addit ional risk stratification for coronary disease in the absence of symptoms once his hemoglobin has returned to normal. History of Present Illness Reason for Consultation: Tachycardia Requesting Physician: Bryan Attending Physician: Ishmael Adams History of Present Illness The patient is a 45-year-old gentleman with a history of SVT who presented to the emergency room with symptoms palpitations and tachycardia. Patient states that he has fairly frequent episodes of palpitations and associated high heart rates. These are noticeable but do not appear to be associated with other significant symptoms. He has some minor discomfort in the left axillary area with episodes. They tend to occur when he feels hot or when it is hot outside. They can occur with significant activity at times. The generally are self- limited or occasionally terminated by vagal maneuvers. The episodes themselves have been present for nearly 30 years according to the patient. He has had an evaluation in the past and was told that he had Ylpxz-Jvqapworn-Tjhgh. It seems at 1 point he was scheduled for an ablation but this never occurred. He was tried on medical therapy as well, but this appeared to make his symptoms worse. He has not noticed a significant change in the frequency or nature of the symptoms until 2 days ago. He woke with an episode that was more severe and took quite some time to resolve. This morning he also woke with a rapid heartbeat. With ambulation and activity he felt mildly dizzy and more dyspneic than usual. He also felt weak. Based on the symptoms the patient was brought to the emergency room for evaluation. He was discovered to have a tachycardia EN route which responded to adenosine. Here in the emergency room he also had an episode of tachycardia associated with ambulation. This appeared to resolve with vagal maneuvers. He was also discovered to be severely anemic and did report having dark stools over the past 2 days. Allergies Allergy/AdvReac Type Severity Reaction Status Date / Time aspirin AdvReac Unknown Unknown Unverified 06/05/20 11:48 Home Medications Medication Instructions Recorded Confirmed Type No Known Home Medications 06/05/20 06/05/20 History Patient History Medical History H/O caloric malnutrition H/O iron deficiency History of asthma Migraines Pectus excavatum Scoliosis WPW (Wsbin-Uxgjevrlc-Optwu syndrome) no h/o ablation Surgical History H/O hernia repair in his 20s - inguinal Family History Other Unknown family medical history Social History Smoking Status: Never smoker Tobacco Type: Cigarettes Smoking End Date: quit when prisons banned tobacco; Hx Alcohol Use: No Hx Substance Use: No Current Living Situation: Other Current Living Situation Comment: [facility] current occupational status: other Feels Safe at Home: Yes Review of Systems Review of Systems: All systems reviewed & are unremarkable except as noted in HPI & below No abdominal pain. No nausea or vomiting. No history of syncope. Occasional migraines for which he takes aspirin or nonsteroidal medication. Physical Exam Physical Exam: The patient is alert and oriented. Mood and affect appeared normal. He answered all questions appropriately. HEENT: Pupils are equal and reactive to light and accommodation. Extraocular movements are intact. The sclerae are anicteric. Neuro: Cranial nerves intact (wearing mask) Neck: Patient's neck is supple. He has palpable carotid pulses bilaterally without bruits on auscultation. There is no evidence of jugular venous d istention. The thyroid is not enlarged. Lungs: Clear to auscultation bilaterally. He has good air movement without use of accessory muscles. No rales wheezes or rhonchi. Cardiac: Heart demonstrates an increased heart rate but regular rhythm. Normal S1 and S2. No murmurs on examination. Pulses: The patient has palpable radial pulses bilaterally that are equal in intensity Extremities: There was no evidence of hypoperfusion. There is no cyanosis or clubbing. There is no edema. Skin: I did not appreciate any rashes on examination today. Results & Data ([facility]) Vital Signs (Past 12 Hours) Vital Signs Temp Pulse Pulse Resp BP BP Pulse Ox 06/05/20 16:16 38.0 C H 134 H 20 113/79 98 06/05/20 16:01 38.2 C H 138 H 20 118/78 98 06/05/20 15:59 38.2 C H 133 H 18 120/88 98 06/05/20 15:46 38 C H 136 H 20 120/88 98 06/05/20 15:37 37.7 C H 124 H 20 119/91 06/05/20 15:08 38.1 C H 138 H 20 124/84 98 06/05/20 15:03 138 H 20 112/79 98 06/05/20 14:42 38.1 C H 142 H 20 120/83 99 06/05/20 14:36 38 C H 147 H 18 124/88 100 06/05/20 14:04 139 H 20 122/78 97 06/05/20 12:04 133 H 16 133/77 100 06/05/20 11:21 37.7 C H 132 H 18 129/74 97 Laboratory Results Abnormal Lab Results 06/05/20 06/05/20 06/05/20 11:50 11:50 12:14 WBC 12.71 H RBC 1.97 L Hgb 6.0 L* Hct 17.8 L* MCV 90.4 MCH 30.5 MCHC 33.7 RDW Std Deviation 47.9 H RDW Coeff of Sherron 14.6 H Plt Count 128 L MPV 11.5 H Immature Gran % (Auto) 0.2 Neut % (Auto) 83.5 Lymph % (Auto) 9.0 Luce % (Auto) 7.0 Eos % (Auto) 0.2 Baso % (Auto) 0.1 Neut # (Auto) 10.62 H Lymph # (Auto) 1.14 L Luce # (Auto) 0.89 H Eos # (Auto) 0.02 Baso # (Auto) 0.01 Immature Gran # (Auto) 0.03 H Absolute Nucleated RBC 0.03 H Nucleated RBC % (auto) 0.2 RBC Morphology Unremarkable PT INR APTT PTT Ratio Sodium Potassium Chloride Carbon Dioxide Anion Gap BUN Creatinine Est Cr Clr Drug Dosing Est GFR ( Amer) Est GFR (Non-Af Amer) BUN/Creatinine Ratio Glucose Calcium Phosphorus Magnesium Transferrin Ferritin Total Bilirubin Direct Bilirubin AST ALT Alkaline Phosphatase Troponin I Total Protein Albumin Globulin Albumin/Globulin Ratio Lipase TSH Urine Color Urine Appearance Urine pH Ur Specific [place] Urine Protein Urine Glucose (UA) Urine Ketones Urine Blood Urine Nitrite Urine Bilirubin Urine Urobilinogen Ur Leukocyte Esterase COVID-19 Eval Order Covid19 IDNow [facility] SARS-CoV-2, RNA, NAAT NEGATIVE Blood Type Blood Type Recheck Antibody Screen Crossmatch 06/05/20 06/05/20 06/05/20 12:14 12:14 12:14 WBC RBC Hgb Hct MCV MCH MCHC RDW Std Deviation RDW Coeff of Sherron Plt Count MPV Immature Gran % (Auto) Neut % (Auto) Lymph % (Auto) Luce % (Auto) Eos % (Auto) Baso % (Auto) Neut # (Auto) Lymph # (Auto) Luce # (Auto) Eos # (Auto) Baso # (Auto) Immature Gran # (Auto) Absolute Nucleated RBC Nucleated RBC % (auto) RBC Morphology PT 11.7 INR 1.1 APTT 23.2 PTT Ratio 0.8 Sodium 142 Potassium 3.7 Chloride 114 H Carbon Dioxide 23 Anion Gap 5.0 BUN 39 H Creatinine 0.67 Est Cr Clr Drug Dosing 124.3 Est GFR ( Amer) 133.6 Est GFR (Non-Af Amer) 115.2 BUN/Creatinine Ratio 58.5 H Glucose 118 H Calcium 7.3 L Phosphorus 1.8 L Magnesium 1.7 L Transferrin Ferritin Total Bilirubin 0.1 L Direct Bilirubin < 0.1 AST 5 L ALT 13 Alkaline Phosphatase 32 L Troponin I 0.134 H* Total Protein 5.3 L Albumin 2.7 L Globulin 2.6 Albumin/Globulin Ratio 1.0 Lipase 120 TSH 0.515 Urine Color Urine Appearance Urine pH Ur Specific [place] Urine Protein Urine Glucose (UA) Urine Ketones Urine Blood Urine Nitrite Urine Bilirubin Urine Urobilinogen Ur Leukocyte Esterase COVID-19 Eval Order SARS-CoV-2, RNA, NAAT Blood Type Blood Type Recheck A Positive Antibody Screen Crossmatch 06/05/20 06/05/20 06/05/20 12:24 12:50 13:22 WBC RBC Hgb Hct MCV MCH MCHC RDW Std Deviation RDW Coeff of Sherron Plt Count MPV Immature Gran % (Auto) Neut % (Auto) Lymph % (Auto) Luce % (Auto) Eos % (Auto) Baso % (Auto) Neut # (Auto) Lymph # (Auto) Luce # (Auto) Eos # (Auto) Baso # (Auto) Immature Gran # (Auto) Absolute Nucleated RBC Nucleated RBC % (auto) RBC Morphology PT INR APTT PTT Ratio Sodium Potassium Chloride Carbon Dioxide Anion Gap BUN Creatinine Est Cr Clr Drug Dosing Est GFR ( Amer) Est GFR (Non-Af Amer) BUN/Creatinine Ratio Glucose Calcium Phosphorus Magnesium Transferrin 201 Ferritin 13.6 Total Bilirubin Direct Bilirubin AST ALT Alkaline Phosphatase Troponin I Total Protein Albumin Globulin Albumin/Globulin Ratio Lipase TSH Urine Color Yellow Urine Appearance Clear Urine pH 6.0 Ur Specific [place] 1.015 Urine Protein Negative Urine Glucose (UA) Negative Urine Ketones Trace H Urine Blood Negative Urine Nitrite Negative Urine Bilirubin Negative Urine Urobilinogen Negative Ur Leukocyte Esterase Negative COVID-19 Eval Order SARS-CoV-2, RNA, NAAT Blood Type A Positive Blood Type Recheck Antibody Screen NEGATIVE Crossmatch See Detail Diagnostic Findings Abdomen and pelvis CT did not reveal any acute findings. ECG Additional Comments: Sinus tachycardia without evidence of pre-excitation PG Care Time/CCT Total # of Minutes Spent Total Time Spent with Patient: Total time spent is greater than 50% in coordination of care (as documented) at patient's floor/unit and/or counseling patient: Coding Level of Care Code 28767 Inpt Consult Level 4 Diagnoses SVT (supraventricular tachycardia) I47.1 Elevated troponin R77.8
[2020-06-05] MEDS ORDERED: ONDANSETRON INJ 2 MG/ML 2 ML VIAL IV PRN (17:02)
[2020-06-05] MEDS: D5NSS + 20MEQ KCL 20 MEQ/1,000 ML BAG IV SCH (17:33)
[2020-06-05] MEDS: PANTOprazole 40 MG in DEXTROSE 5% 100 ML IV SCH ×2 (17:34→21:52)
[2020-06-05 21:27] LABS: Folate (Folic Acid) 16.1 ng/ml (>5.38)
[2020-06-05] MEDS: CYANOCOBALAMIN 1000 MCG/ML VIAL IM SCH (23:14)
[2020-06-06] MEDS: D5NSS + 20MEQ KCL 20 MEQ/1,000 ML BAG IV SCH ×4 (01:04→22:44)
[2020-06-06] MEDS: PANTOprazole 40 MG in DEXTROSE 5% 100 ML IV SCH ×3 (03:14→12:54)
[2020-06-06 05:23] LABS: Hematocrit (blood only) 18.4 % (42-52); Hemoglobin 6.1 g/dL (14.0-18.0); Mean Corpuscular Hemoglobin 30.5 pg (25-34); Mean Corpuscular Hgb Conc 33.2 g/dL (32-36); Mean Platelet Volume 12.7 fL (7.4-10.4); Platelet Count 91 K/uL (130-400); RDW Coefficient of Variation 14.4 % (11.5-14.5); RDW Standard Deviation 47.1 fL (36.4-46.3); White Blood Count 7.72 K/uL (4.8-10.8)
[2020-06-06 05:26] LABS: BUN Creatinine Ratio 51.6 (10-20); Calcium 6.5 mg/dl (8.5-10.1); Creatinine Clr Calc Pharmacy 151.4 ml/min; Est GFR (African American) 144.8; Magnesium 2.2 mg/dl (1.8-2.4); Potassium 3.8 mmol/L (3.5-5.1)
[2020-06-06 05:33] LABS: Phosphorus 2.2 mg/dl (2.5-4.9); Troponin I 0.121 ng/ml (0-0.045)
[2020-06-06 05:42] LABS: Platelet Estimate Decreased (Normal)
[2020-06-06] MEDS ORDERED: SODIUM CHLORIDE 0.9% 250 ML IV PRN ×2 (07:50→08:03)
[2020-06-06] MEDS ORDERED: POTASSIUM PHOS 3 MMOL/1 ML INFUSION IV STA (08:05)
[2020-06-06] MEDS ORDERED: POTASSIUM PHOSPHATE 15 MMOL in SODIUM CHLORIDE 0.9% 250 ML IV ONE (08:30)
--- NOTE | 2020-06-06 10:19 | Gastrointestinal Consultation ---
Date of Consultation June 06, 2020 Assessment & Plan (1) Symptomatic anemia: With possible melena. H/H presently 6.1/18.4. -Keep NPO for EGD today -Continue IV Protonix gtt -Complete transfusion as previously ordered by primary team -Continue to monitor H/H and monitor for clinical signs/symptoms of worsening bleeding -Check Celiac panel -Further recommendations pending results of EGD Supervising Physician Co-Signing Physician Notes Agree with AWA Palm Abd: Soft, NT, ND, +BS Continue current therapy Proceed with EGD now History of Present Illness Reason for Consultation: Anemia Attending Physician: Cam Cunningham DO History of Present Illness Patient is a 45 yo incarcerated male hospitalized for anemia. He is profoundly anemic, worse since admission, with an H/H of 6.1/18.4 He reports that recently he has noted melena and worsening heartburn. He takes NSAIDs for migraines. He reports a personal history of IBS. He denies changes in his bowel habits currently. He denies history of PUD. He is currently being transfused at the time of my visit. He was seen by cardiology due to an elevated troponin. It was felt that this was due to his profound anemia. Allergies Allergy/AdvReac Type Severity Reaction Status Date / Time aspirin AdvReac Unknown Unknown Unverified 06/05/20 11:48 Home Medications Medication Instructions Recorded Confirmed Type No Known Home Medications 06/05/20 06/05/20 History Patient History Medical History H/O caloric malnutrition H/O iron deficiency History of asthma Migraines Pectus excavatum Scoliosis WPW (Cwkwb-Vxcfulenh-Hgsxa syndrome) no h/o ablation Surgical History H/O hernia repair in his 20s - inguinal Family History Other Unknown family medical history Social History Smoking Status: Former smoker Tobacco Type: Cigarettes Smoking End Date: quit when prisons banned tobacco; Second Hand Exposure: No; Do You Dip or Chew Tobacco: No; Hx Alcohol Use: No Hx Substance Use: No Preferred Language: Greenlandic Communication Ability: Effective Beliefs That Will Affect Care: None Current Living Situation: Other Current Living Situation Comment: custodial current occupational status: other Other Information That Helps Us Care for You: No Feels Safe at Home: Yes Safety Concerns: Feels Safe At This Time Assistive Devices: None Review of Systems Constitutional: + fatigue; no fever, no chills and no weight loss Eyes: no problem reported Respiratory: + dyspnea on exertion; no cough and no dyspnea Cardiovascular: no chest pain Gastrointestinal: + abdominal pain (epigastric pain) and + heartburn Musculoskeletal: no problem reported Integumentary: no problem reported Psychiatric: no problem reported Endocrine: no problem reported Hematologic / Lymphatic: no unexplained weight loss Physical Exam Constitutional: WD/WN, vitals as above ENMT: Ears: no hearing impairment Neck: normal visual inspection Respiratory: normal respiratory effort Cardiovascular: Extremities: no edema Gastrointestinal (Abdomen): normal bowel sounds, soft, nontender, no hepatosplenomegaly Musculoskeletal: Head/Neck/Chest: normocephalic Skin: no rashes Neurologic: Speech / Cognition: normal speech Psychiatric: Orientation: alert and oriented x 3 Results & Data ([facility]) Vital Signs (Past 12 Hours) Vital Signs Temp Pulse Pulse Resp BP BP Pulse Ox 06/06/20 09:46 37.7 C H 116 H 16 117/82 99 06/06/20 09:16 37.9 C H 104 H 16 126/81 98 06/06/20 09:01 37.6 C H 118 H 16 126/88 99 06/06/20 08:39 37.7 C H 120 H 16 131/89 100 06/06/20 00:26 37.1 C 122 H 18 126/83 100 06/05/20 23:37 36.8 C 129 H 20 143/92 H 100 PG Care Time/CCT Total # of Minutes Spent Total Time Spent with Patient: Total time spent is greater than 50% in coordination of care (as documented) at patient's floor/unit and/or counseling patient: Coding Level of Care Code 14923 Inpt Consult Level 4 Diagnoses Symptomatic anemia D64.9
[2020-06-06] MEDS: CYANOCOBALAMIN 1000 MCG/ML VIAL IM SCH (12:01)
[2020-06-06 14:11] LABS: Influenza A virus by PCR Negative (Neg); Influenza B virus by PCR Negative (Neg); RSV by PCR Negative (Neg); SARS CoV2 RNA(COVID-19) InHosp NEGATIVE (Negative)
--- NOTE | 2020-06-06 14:34 | Anesthesiology Consultation ---
Date of Service June 06, 2020 Assessment & Plan (1) Encounter for pre-operative examination: Chart Review Chart Review: Acceptable Risk for Surgery and Patient NOT seen in Pre Admission Testing Consults Requested none History Surgery Operation Date: 06/06/20 17:15 Proposed Procedures p Esophagogastroduodenoscopy Dr Franco - Terrence Franco, DO Height/Weight Height: 5 ft 6 in Weight: 72.8 kg Allergies Allergy/AdvReac Type Severity Reaction Status Date / Time aspirin AdvReac Unknown Unknown Unverified 06/05/20 11:48 Medications Home Medications Medication Instructions Recorded Confirmed Last Taken No Known Home Medications 06/05/20 06/05/20 Unknown Active Medications Generic Name Dose Route Start Last Admin Trade Name Freq PRN Reason Stop Dose Admin Cyanocobalamin 1,000 mcg 06/05/20 22:30 06/06/20 12:01 Cyanocobalamin 1000 Mcg/Ml Vial IM 07/05/20 22:29 1,000 mcg DAILY SHANNON Administration Potassium Chloride/Dextrose/Sod Cl 20 meq in 1,000 mls @ 125 mls/hr 06/05/20 16:00 06/06/20 12:02 D5nss + 20meq Kcl IV 07/05/20 15:59 125 mls/hr .Q8H SHANNON Administration Pantoprazole Sodium 40 mg/ 100 mls @ 20 mls/hr 06/05/20 17:20 06/06/20 12:54 Dextrose IV 07/05/20 17:19 8 mg/hr Q5H SHANNON 20 mls/hr Administration 8 MG/HR Past Medical History Medical History H/O caloric malnutrition H/O iron deficiency History of asthma Migraines Pectus excavatum Scoliosis 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 Past Family History Family History Other Unknown family medical history Past Surgical History Surgical History H/O hernia repair in his 20s - inguinal Social History Smoking Status: Former smoker Do You Dip or Chew Tobacco: No Smoking End Date: quit when prisons banned tobacco Hx Alcohol Use: No Hx Substance Use: No Physical Exam Vital Signs Last Vital Signs Temp 37.6 C H 06/06/20 13:46 Pulse 117 H 06/06/20 13:46 Resp 16 06/06/20 13:46 BP 141/92 H 06/06/20 13:46 Pulse Ox 100 06/06/20 13:46 Testing Laboratory Results 06/06/20 04:35 06/06/20 04:35 PT 11.7 Seconds (9.0-12.0) 06/05/20 12:14 INR 1.1 (0.9-1.1) 06/05/20 12:14 APTT 23.2 Seconds (21.0-31.0) 06/05/20 12:14 Urine Color Yellow 06/05/20 12:50 Urine Appearance Clear (Clear) 06/05/20 12:50 Urine pH 6.0 (4.5-7.5) 06/05/20 12:50 Ur Specific [place] 1.015 (1.000-1.030) 06/05/20 12:50 Urine Protein Negative (Negative) 06/05/20 12:50 Urine Glucose (UA) Negative (Negative) 06/05/20 12:50 Urine Ketones Trace (Negative) H 06/05/20 12:50 Urine Nitrite Negative (Negative) 06/05/20 12:50 Ur Leukocyte Esterase Negative (Negative) 06/05/20 12:50 Blood Type A Positive 06/05/20 13:22 Antibody Screen NEGATIVE 06/05/20 13:22
[2020-06-06 15:22] LABS: Hematocrit (blood only) 27.2 % (42-52); Hemoglobin 9.2 g/dL (14.0-18.0)
--- NOTE | 2020-06-06 15:27 | Cardiology Progress Note ---
Date of Service June 06, 2020 Assessment & Plan (1) SVT (supraventricular tachycardia): No recurrence of his SVT overnight. I suspect that as his adrenergic state improves will be less likely to have a recurrence. However, does describe fairly frequent episodes and I would not be surprising we saw more SVT. Again, this is generally self-limited in often controlled with vagal maneuvers. For very extended episodes or evidence of hemodynamic compromise, adenosine could be administered. Do not believe he requires any prophylaxis otherwise. (2) Elevated troponin: Demand related. Do not believe this is advertising account representative of an acute coronary syndrome. Treatment is simply supportive with improved hemoglobin levels, maintaining good oxygenation and avoiding frequent and prolonged episodes of tachycardia. Admission and Anticipated Discharge Date Admission Date: June 05, 2020 Subjective This morning the patient clinically feeling better. He has continued to have some dark bowel movements. He denies abdominal complaints. No additional episodes of WPW Review of Systems Review of Systems: Per HPI. Dizziness improved. Physical Exam Physical Exam: The patient is alert and oriented. Mood and affect appeared normal. He answered all questions appropriately. HEENT: Pupils are equal and reactive to light and accommodation. Extraocular movements are intact. The sclerae are anicteric. Neuro: Cranial nerves intact Lungs: Clear to auscultation bilaterally. He has good air movement without use of accessory muscles. No rales wheezes or rhonchi. Cardiac: Heart demonstrates an increased heart rate but regular rhythm. Normal S1 and S2. No murmurs on examination. Pulses: The patient has palpable radial pulses bilaterally that are equal in intensity Extremities: There was no evidence of hypoperfusion. There is no cyanosis or clubbing. There is no edema. Skin: I did not appreciate any rashes on examination today. Results & Data ([facility]) Vital Signs (Past 12 Hours) Vital Signs Temp Pulse Pulse Resp BP BP Pulse Ox 06/06/20 15:02 37.5 C 118 H 20 142/88 H 99 06/06/20 13:46 37.6 C H 117 H 16 141/92 H 100 06/06/20 13:04 37.2 C 111 H 16 143/89 H 99 06/06/20 12:04 37.1 C 117 H 16 131/98 99 06/06/20 11:34 37.9 C H 115 H 16 129/83 100 06/06/20 11:19 37.9 C H 119 H 16 139/87 99 06/06/20 11:03 37.7 C H 115 H 18 133/85 99 06/06/20 10:35 37.7 C H 117 H 16 137/86 99 06/06/20 09:46 37.7 C H 116 H 16 117/82 99 06/06/20 09:16 37.9 C H 104 H 16 126/81 98 06/06/20 09:01 37.6 C H 118 H 16 126/88 99 06/06/20 08:39 37.7 C H 120 H 16 131/89 100 Laboratory Results Abnormal Lab Results 06/05/20 06/05/20 06/05/20 12:20 13:22 18:00 WBC RBC Hgb Hct MCV MCH MCHC RDW Std Deviation RDW Coeff of Sherron Plt Count MPV Platelet Estimate Sodium Potassium Chloride Carbon Dioxide Anion Gap BUN Creatinine Est Cr Clr Drug Dosing Est GFR ( Amer) Est GFR (Non-Af Amer) BUN/Creatinine Ratio Glucose Calcium Ionized Calcium Phosphorus Magnesium Troponin I Vitamin B12 Folate Procalcitonin < 0.05 Nasal Screen MRSA (PCR) Negative COVID-19 Eval Order COVID-19 PCR Influenza Type A (PCR) Influenza Type B (PCR) RSV (RT-PCR) Blood Type A Positive Antibody Screen NEGATIVE Crossmatch See Detail 06/05/20 06/05/20 06/06/20 19:51 19:51 04:35 WBC RBC Hgb 7.0 L Hct 21.0 L MCV MCH MCHC RDW Std Deviation RDW Coeff of Sherron Plt Count MPV Platelet Estimate Sodium 146 H Potassium 3.8 Chloride 118 H Carbon Dioxide 24 Anion Gap 4.0 BUN 28 H Creatinine 0.55 L Est Cr Clr Drug Dosing 151.4 Est GFR ( Amer) 144.8 Est GFR (Non-Af Amer) 125.0 BUN/Creatinine Ratio 51.6 H Glucose 119 H Calcium 6.5 L Ionized Calcium Phosphorus 2.2 L Magnesium 2.2 Troponin I 0.121 H* Vitamin B12 290 Folate 16.10 Procalcitonin Nasal Screen MRSA (PCR) COVID-19 Eval Order COVID-19 PCR Influenza Type A (PCR) Influenza Type B (PCR) RSV (RT-PCR) Blood Type Antibody Screen Crossmatch 06/06/20 06/06/20 06/06/20 04:35 08:33 14:53 WBC 7.72 RBC 2.00 L Hgb 6.1 L* 9.2 L D Hct 18.4 L* 27.2 L MCV 92.0 MCH 30.5 MCHC 33.2 RDW Std Deviation 47.1 H RDW Coeff of Sherron 14.4 Plt Count 91 L MPV 12.7 H Platelet Estimate Decreased L Sodium Potassium Chloride Carbon Dioxide Anion Gap BUN Creatinine Est Cr Clr Drug Dosing Est GFR ( Amer) Est GFR (Non-Af Amer) BUN/Creatinine Ratio Glucose Calcium Ionized Calcium 1.06 L Phosphorus Magnesium Troponin I Vitamin B12 Folate Procalcitonin Nasal Screen MRSA (PCR) COVID-19 Eval Order COVID-19 PCR Influenza Type A (PCR) Influenza Type B (PCR) RSV (RT-PCR) Blood Type Antibody Screen Crossmatch 06/06/20 06/06/20 Unknown Unknown WBC RBC Hgb Hct MCV MCH MCHC RDW Std Deviation RDW Coeff of Sherron Plt Count MPV Platelet Estimate Sodium Potassium Chloride Carbon Dioxide Anion Gap BUN Creatinine Est Cr Clr Drug Dosing Est GFR ( Amer) Est GFR (Non-Af Amer) BUN/Creatinine Ratio Glucose Calcium Ionized Calcium Phosphorus Magnesium Troponin I Vitamin B12 Folate Procalcitonin Nasal Screen MRSA (PCR) COVID-19 Eval Order [facility]Rsv at [facility] COVID-19 PCR NEGATIVE Influenza Type A (PCR) Negative Influenza Type B (PCR) Negative RSV (RT-PCR) Negative Blood Type Antibody Screen Crossmatch PG Care Time/CCT Total # of Minutes Spent Total Time Spent with Patient: Total time spent is greater than 50% in coordination of care (as documented) at patient's floor/unit and/or counseling patient: Coding Level of Care Code 44267 Subseq Hosp Care Lvl 2 Diagnoses SVT (supraventricular tachycardia) I47.1 Elevated troponin R77.8
[2020-06-06] MEDS ORDERED: PROPOFOL IV EMULSION 10 MG/ML 20 ML VIAL IV ONE (15:30)
[2020-06-06] MEDS ORDERED: LIDOCAINE HCL 2% 2 ML VIAL/AMP(20MG/ML) INFIL ONE (15:30)
--- NOTE | 2020-06-06 15:33 | GI REPORT ---
Patient Name: Waqas [id number] Detemple Procedure Date: 06/06/2020 3:00 PM Date of : 1975 Admit Type: Inpatient Age: 45 Gender: Male Attending MD: Terrence Franco DO Procedure: Upper GI endoscopy Providers: Terrence Franco DO Referring MD: Cam Fried d.o. Indications: Acute post hemorrhagic anemia, Melena Medicines: Monitored Anesthesia Care Complications: No immediate complications. Estimated Blood Loss: Estimated blood loss: none. Procedure: Pre-Anesthesia Assessment: - Prior to the procedure, a History and Physical was performed, and patient medications and allergies were reviewed. The patient's tolerance of previous anesthesia was also reviewed. The risks and benefits of the procedure and the sedation options and risks were discussed with the patient. All questions were answered, and informed consent was obtained. Prior Anticoagulants: The patient has taken no previous anticoagulant or antiplatelet agents. ASA Grade Assessment: IV - A patient with severe systemic disease that is a constant threat to life. After reviewing the risks and benefits, the patient was deemed in satisfactory condition to undergo the procedure. After obtaining informed consent, the endoscope was passed under direct vision. Throughout the procedure, the patient's blood pressure, pulse, and oxygen saturations were monitored continuously. The Endoscope was introduced through the mouth, and advanced to the third part of duodenum. The upper GI endoscopy was accomplished without difficulty. The patient tolerated the procedure well. Findings: LA Grade B (one or more mucosal breaks greater than 5 mm, not extending between the tops of two mucosal folds) esophagitis with no bleeding was found 38 cm from the incisors. One non-bleeding cratered gastric ulcer with no stigmata of bleeding was found in the gastric antrum. The lesion was 10 mm in largest dimension. Localized moderate inflammation characterized by erosions and erythema was found in the gastric antrum. Biopsies were taken with a cold forceps for histology. The examined duodenum was normal. Biopsies for histology were taken with a cold forceps for evaluation of celiac disease. Impression: - LA Grade B reflux esophagitis. - Non-bleeding gastric ulcer with no stigmata of bleeding. - Gastritis. Biopsied. - Normal examined duodenum. Biopsied. Recommendation: - Return patient to hospital uribe for ongoing care. - Advance diet as tolerated. - Use Protonix (pantoprazole) 40 mg PO BID. - Await pathology results. Terrence Franco, DO 06/06/2020 3:32:32 PM This report has been signed electronically. Note Initiated On: 06/06/2020 3:00 PM Number of Addenda: 0 I attest to the content of the Intraoperative Record and orders documented therein, exceptions below {[id number]}
--- NOTE | 2020-06-06 15:48 | Anesthesiology Progress Note ---
Date of Service June 06, 2020 Anesthesia Post Procedure Vital Signs Vital Signs: Temp Pulse Pulse Pulse Resp BP BP 06/06/20 15:45 102 H 16 119/81 06/06/20 15:30 37.1 C 104 H 16 124/81 06/06/20 15:02 37.5 C 118 H 20 142/88 H 06/06/20 13:46 37.6 C H 117 H 16 141/92 H 06/06/20 13:04 37.2 C 111 H 16 143/89 H 06/06/20 12:04 37.1 C 117 H 16 131/98 06/06/20 11:34 37.9 C H 115 H 16 129/83 06/06/20 11:19 37.9 C H 119 H 16 139/87 06/06/20 11:03 37.7 C H 115 H 18 133/85 06/06/20 10:35 37.7 C H 117 H 16 137/86 06/06/20 09:46 37.7 C H 116 H 16 117/82 06/06/20 09:16 37.9 C H 104 H 16 126/81 06/06/20 09:01 37.6 C H 118 H 16 126/88 06/06/20 08:39 37.7 C H 120 H 16 131/89 06/06/20 00:26 37.1 C 122 H 18 126/83 06/05/20 23:37 36.8 C 129 H 20 143/92 H 06/05/20 22:00 125 H 06/05/20 21:53 128 H 136/77 06/05/20 21:45 118 H 06/05/20 21:42 125 H 122/88 06/05/20 21:30 122 H 06/05/20 21:15 123 H 06/05/20 21:00 124 H 06/05/20 20:54 126 H 122/88 06/05/20 20:45 123 H 06/05/20 20:23 37.3 C 127 H 126/90 06/05/20 17:49 38 C H 126 H 22 125/86 06/05/20 17:29 38.1 C H 120 H 20 124/82 06/05/20 17:00 123 H 06/05/20 16:55 38.1 C H 127 H 125/86 06/05/20 16:46 38.1 C H 126 H 22 125/86 06/05/20 16:30 141 H 20 128/89 06/05/20 16:16 38.0 C H 134 H 20 113/79 06/05/20 16:15 131 H 22 113/79 06/05/20 16:01 38.2 C H 138 H 20 118/78 06/05/20 16:00 135 H 20 118/78 06/05/20 15:59 38.2 C H 133 H 18 120/88 Pulse Ox 06/06/20 15:45 100 06/06/20 15:30 100 06/06/20 15:02 99 06/06/20 13:46 100 06/06/20 13:04 99 06/06/20 12:04 99 06/06/20 11:34 100 06/06/20 11:19 99 06/06/20 11:03 99 06/06/20 10:35 99 06/06/20 09:46 99 06/06/20 09:16 98 06/06/20 09:01 99 06/06/20 08:39 100 06/06/20 00:26 100 06/05/20 23:37 100 06/05/20 22:00 92 06/05/20 21:53 06/05/20 21:45 95 06/05/20 21:42 06/05/20 21:30 06/05/20 21:15 92 06/05/20 21:00 06/05/20 20:54 94 06/05/20 20:45 06/05/20 20:23 98 06/05/20 17:49 95 06/05/20 17:29 96 06/05/20 17:00 06/05/20 16:55 98 06/05/20 16:46 06/05/20 16:30 99 06/05/20 16:16 98 06/05/20 16:15 98 06/05/20 16:01 98 06/05/20 16:00 98 06/05/20 15:59 98 Transfer of Care Handoff Completed per policy Notes Mental Status: alert / awake / arousable Patient Amnestic to Procedure: Yes Nausea / Vomiting: adequately controlled Pain: adequately controlled Airway Patency, RR, SpO2: stable & adequate BP & HR: stable & adequate Hydration State: stable & adequate Anesthetic Complications: no major complications apparent and Pt Satisfied with anesthetic care
--- NOTE | 2020-06-06 16:03 | Hospitalist Progress Note ---
Date of Service June 06, 2020 Assessment & Plan (1) Acute upper gastrointestinal bleeding: Mr. Kenny is a 45 yo M prisoner who was admitted for gross melena and acute blood loss anemia on 06/05/20. He was transfused 2 units of pRBCs on arrival, to which his hemoglobin betty only by 1.6 (inappropriate response). He was transfused an additional 2 units, after which his hemoglobin appropriate responded (increase to 9.2). GI performed an upper endoscopy today, which showed evidence of reflux esophagitis, gastritis and a non-bleeding gastric ulcer. Biopsies were obtained and pathology is pending. Acute upper gastrointestinal bleeding: - gross melena noted by ED attending; heme + stool noted - patient reports history of melena for 2 days preceding admission (but never before) - GI following, endoscopy results as above - continue Protonix 40mg PO BID - risk factors for gastric ulcers include frequent NSAID/aspirin use (patient reports migraine headaches, more than usual in past month) - celiac studies pending Acute blood loss anemia - Hgb 6.0 on admission, MCV 92 - iron level not checked, ferritin low at 13. B12 and folate levels normal. - not on a blood thinner or regular antiplatelet therapy. coags normal. - iron deficiency anemia on problem list, current anemia likely multifactorial (acute blood loss + iron deficiency) - start IV venofer - trend H+H - transfuse if < 7 Tachycardia - HR 100-120s - likely secondary to symptomatic anemia (see above) vs. fever (tmax 38.2) - telemetry History of WPW (Azxiu-Jdmezgnbx-Pvsxo syndrome): - no prior ablation procedure - cardiology following, appreciate recs - telemetry - EKG reviewed, no delta wave - replace electrolytes prn Fever - Febrile on arrival (prior to pRBC transfusion) - T max 38.2; patient spike low grade fever of 37.9 today - WBC elevated to 12 on admission, normal at 7 today - COVID 19 nasopharyngeal negative on admission - procal not elevated; no consolidation noted on CXR; UA normal. CT a/p showing no evidence of infection - [employer] resp. viral panel ordered; covid pcr neg, otherwise still pending Thrombocytopenia - platelet level low at 91 - may be secondary to recent aspirin use or infection (given fever). no heparin use - well above transfusion threshold - trend CBC Elevated troponin - trop 0.13 on admission, has since downtrended - patient denies chest pain on exam - suspect secondary to demand ischemia given symptomatic anemia Dispo: PCU Diet: Clear liquid, NPO after midnight Code: Full DVT ppx: SCDs, chemical means contraindicated in setting of acute GI bleed Admission and Anticipated Discharge Date Admission Date: June 05, 2020 Supervising Physician Co-Signing Physician Notes Patient seen and examined independently of PGY-2 Dr. Dumont. Agree with history, exam findings, assessment and plan of care as outlined: In brief, Mr. Kenny is a 45 year old male with history of migraines, asthma and iron deficiency anemia admitted with acute anemia secondary to GI bleed. Reports mild headache today. Denies dizziness/lightheadedness, chest pain, dyspnea. Has not felt feverish. Denies cough. Vital signs and nursing notes reviewed. On exam, he is pale appearing. Tachycardic. 1. Acute anemia secondary to upper GI bleed. Transfused PRBCs. Monitoring hgb and ensuring appropriate response to transfusion. EGD today with GI showed reflu x esophagitis, non-bleeding gastric ulcer and gastritis. PPI BID. IgA, TTG pending. 2. Anemia. Ferritin low. Getting transfused with PRBCs and start IV venofer. B12 is borderline, folate level normal. 3. Thrombocytopenia. Appears to be new. Monitor. 4. SVT, Tachycardia. Most likely secondary to anemia. 5. Elevated troponin. Likely secondary to demand due to anemia. 6. Low grade fever. Leukocytosis resolved. COVID neg x 2. Influenza negative. Dispo: pending clinical improvement. Subjective Feeling well - does report dark BMs today in hospital. Denies ever seeing blood in urine, no epistaxis. Patient denies any insert of objects into rectum Review of Systems Review of Systems: All systems reviewed & are unremarkable except as noted in HPI & below Cardiovascular: no chest pain and no dyspnea Physical Exam Constitutional: WD/WN, vitals as above cooperative; no acute distress Eyes: + anicteric sclerae ENMT: external ear and nose normal, oropharynx normal Neck: normal visual inspection and trachea midline Respiratory: normal respiratory effort, lungs clear to auscultation no cough Cardiovascular: Rate/Rhythm: regular rhythm and + tachycardic Heart Sounds: normal S1, normal S2 and + murmur (systolic ejection ) Gastrointestinal (Abdomen): normal bowel sounds, soft, nontender, no hepatosplenomegaly Skin: no rashes, warm and dry Psychiatric: A+Ox3, euthymic affect Results & Data Results & Data ([facility]) Vital Signs (Past 12 Hours) Vital Signs Temp Pulse Pulse Resp BP BP Pulse Ox 06/06/20 16:00 99 H 16 118/83 100 06/06/20 15:45 102 H 16 119/81 100 06/06/20 15:30 37.1 C 104 H 16 124/81 100 06/06/20 15:02 37.5 C 118 H 20 142/88 H 99 06/06/20 13:46 37.6 C H 117 H 16 141/92 H 100 06/06/20 13:04 37.2 C 111 H 16 143/89 H 99 06/06/20 12:04 37.1 C 117 H 16 131/98 99 06/06/20 11:34 37.9 C H 115 H 16 129/83 100 06/06/20 11:19 37.9 C H 119 H 16 139/87 99 06/06/20 11:03 37.7 C H 115 H 18 133/85 99 06/06/20 10:35 37.7 C H 117 H 16 137/86 99 06/06/20 09:46 37.7 C H 116 H 16 117/82 99 06/06/20 09:16 37.9 C H 104 H 16 126/81 98 06/06/20 09:01 37.6 C H 118 H 16 126/88 99 06/06/20 08:39 37.7 C H 120 H 16 131/89 100 Resident Activity Tracking Resident Involvement: Resident Care Provided Care Provided: Adult [facility] Medicine
[2020-06-06] MEDS ORDERED: CALCIUM GLUCONATE 10% 10 ML VIAL IV STA (16:17)
[2020-06-06] MEDS ORDERED: CALCIUM GLUCONATE 10% 1,000 MG in SODIUM CHLORIDE 0.9% 50 ML IV ONE (16:45)
[2020-06-06] MEDS ORDERED: IRON SUCROSE 200 MG in 0.9 % SODIUM CHLORIDE 100 ML IV ONE (17:00)
[2020-06-06] MEDS: PANTOprazole 40 MG TAB PO SCH (20:34)
[2020-06-07 05:33] LABS: Hematocrit (blood only) 23.3 % (42-52); Hemoglobin 7.9 g/dL (14.0-18.0); Mean Corpuscular Hemoglobin 30.7 pg (25-34); Mean Corpuscular Hgb Conc 33.9 g/dL (32-36); Mean Corpuscular Volume 90.7 fL (80-100); Mean Platelet Volume 12.5 fL (7.4-10.4); Platelet Count 97 K/uL (130-400); RDW Coefficient of Variation 14.2 % (11.5-14.5); RDW Standard Deviation 46.5 fL (36.4-46.3); Red Blood Count 2.57 M/uL (4.7-6.1)
[2020-06-07 05:34] LABS: Basophils # (auto) 0.01 K/uL (0-0.2); Basophils % (auto) 0.1 %; Eosinophils # (auto) 0.18 K/uL (0-0.5); Eosinophils % (auto) 2.2 %; Immature Granulocytes # (auto) 0.01 K/uL (0.00-0.02); Immature Granulocytes % (auto) 0.1 %; Lymphocytes # (auto) 1.89 K/uL (1.2-3.4); Monocytes % (auto) 8.5 %; Neutrophils # (auto) 5.41 K/uL (1.4-6.5); Neutrophils % (auto) 66.1 %; Platelet Estimate Decreased (Normal); Polychromasia 1+
[2020-06-07 06:03] LABS: BUN Creatinine Ratio 10.3 (10-20); Calcium 7.1 mg/dl (8.5-10.1); Creatinine Clr Calc Pharmacy 141.2 ml/min; Est GFR (African American) 140.7; Est GFR (Non-African American) 121.4; Magnesium 1.9 mg/dl (1.8-2.4); Phosphorus 2.4 mg/dl (2.5-4.9); Potassium 3.6 mmol/L (3.5-5.1)
[2020-06-07] MEDS: D5NSS + 20MEQ KCL 20 MEQ/1,000 ML BAG IV SCH (06:47)
[2020-06-07] MEDS: PANTOprazole 40 MG TAB PO SCH ×2 (07:56→20:32)
[2020-06-07] MEDS: CYANOCOBALAMIN 1000 MCG/ML VIAL IM SCH (07:56)
--- NOTE | 2020-06-07 09:25 | Gastroenterology Progress Note ---
Date of Service June 07, 2020 Assessment & Plan (1) Acute blood loss anemia: (2) Esophagitis: (3) Gastric ulcer: -Continue Protonix 40 mg BID on d/c. After 8 weeks, can decrease to once daily therapy. -Avoid NSAIDs. -Continue to monitor H/H and for further s/s of ongoing bleeding. -Supportive care per primary team. Admission and Anticipated Discharge Date Admission Date: June 05, 2020 Supervising Physician Co-Signing Physician Notes Agree with AWA Palm Abd: Soft, NT, ND, +BS Continue Pantoprazole 40 mg BID Advance diet as tolerated Subjective Patient is a 45 yo male with anemia & epigastric pain. He underwent an EGD on 06/06/2020 that indicated gastric ulcer and esophagitis. The patient's H/H is improved to 7.9/23.3 today. He denies further epigastric pain. He reports one dark stool yesterday afternoon. Overall improved. Understands that he should discontinue NSAIDs. Review of Systems Constitutional: no fever and no chills Respiratory: no cough and no dyspnea Cardiovascular: no chest pain Gastrointestinal: + melena; no abdominal pain, no heartburn, no coffee ground emesis and no dysphagia Physical Exam Constitutional: WD/WN, vitals as above Respiratory: normal respiratory effort Cardiovascular: Rate/Rhythm: + tachycardic Extremities: no edema Gastrointestinal (Abdomen): Inspection/Auscultation: abdomen normal to inspection Musculoskeletal: Head/Neck/Chest: normocephalic Psychiatric: A+Ox3, euthymic affect Results & Data Results & Data ([facility]) Vital Signs (Past 12 Hours) Vital Signs Temp Pulse Pulse Resp BP BP Pulse Ox 06/07/20 08:00 36.7 C 105 H 115 H 20 135/82 96 06/07/20 06:22 107 H 133/76 97 06/07/20 04:55 37.3 C 94 H 117/80 97 06/07/20 04:33 37.3 C 107 H 16 117/80 98 06/07/20 00:22 102 H 16 111/75 95 06/06/20 23:32 104 H 06/06/20 22:22 36.8 C 105 H 18 135/85 96 06/06/20 22:00 106 H PG Care Time/CCT Total # of Minutes Spent Total Time Spent with Patient: Total time spent is greater than 50% in coordination of care (as documented) at patient's floor/unit and/or counseling patient: Coding Level of Care Code 06246 Subseq Hosp Care Lvl 2 Diagnoses Acute blood loss anemia D62 Esophagitis K20.90 Gastric ulcer K25.0 Gastric ulcer chronicity: acute Gastric ulcer complication status: with hemorrhage (1) Gastric ulcer Gastric ulcer chronicity: acute Gastric ulcer complication status: with hemorrhage Qualified Code(s): K25.0 - Acute gastric ulcer with hemorrhage
[2020-06-07] MEDS ORDERED: ACETAMINOPHEN 325 MG TAB PO PRN (11:30)
[2020-06-07] MEDS: FEXOFENADINE HCL 180 MG TAB PO SCH (11:50)
[2020-06-07] MEDS: FLUTICASONE PROPIONATE NA SPR 16 GM BTL SCH (11:51)
[2020-06-07] MEDS ORDERED: ADENOSINE IV SOLN 3 MG/ML 2 ML VIAL IV STA ×2 (13:51→19:18)
[2020-06-07] MEDS ORDERED: ADENOSINE IV SOLN 3 MG/ML 2 ML VIAL IV ONE ×2 (13:51→19:11)
--- NOTE | 2020-06-07 15:26 | Hospitalist Progress Note ---
Date of Service June 07, 2020 Assessment & Plan (1) Acute upper gastrointestinal bleeding: Mr. Kenny is a 45 yo M prisoner who was admitted for gross melena and acute blood loss anemia on 06/05/20. He was transfused 2 units of pRBCs on arrival, to which his hemoglobin betty only by 1.6 (inappropriate response). He was transfused an additional 2 units, after which his hemoglobin appropriate responded (increase to 9.2). GI performed an upper endoscopy yesterday, which showed evidence of reflux esophagitis, gastritis and a non-bleeding gastric ulcer. Biopsies were obtained and pathology is pending. Acute upper gastrointestinal bleeding: - gross melena noted by ED attending; heme + stool noted - patient reports history of melena for 2 days preceding admission (but never before) - GI following, endoscopy results as above - continue Protonix 40mg PO BID - risk factors for gastric ulcers include frequent NSAID/aspirin use (patient reports migraine headaches, more than usual in past month) - celiac studies pending Acute blood loss anemia - Hgb 6.0 on admission, MCV 92; hemoglobin 7.9 today. - iron level not checked, ferritin low at 13. B12 borderline and folate levels normal. - not on a blood thinner or regular antiplatelet therapy. coags normal. - iron deficiency anemia on problem list, current anemia likely multifactorial (acute blood loss + iron deficiency) - start IV venofer - Continue IM B12 - trend H+H - transfuse if < 7 Tachycardia - HR has been elevated entire admission - likely secondary to symptomatic anemia (see above) vs. fever (tmax 38.2) - patient went into episode of SVT today, HR reached 220s, resolved with 6mg IV adenosine. Patient reports several episodes per week that generally respond to vagal maneuvers. - telemetry History of WPW (Ixcvb-[id number] syndrome): - no prior ablation procedure - cardiology following, appreciate recs - EKG reviewed, no delta wave or evidence of pre-excitation, but we do not have an EKG where he is not tachycardic to truly be able to assess for pre-excitation well - replace electrolytes prn Fever - resolved - Febrile on arrival (prior to pRBC transfusion); T max 38.2 - last fever was 12/2 ~ 4:30pm - WBC elevated to 12 on admission, has since normalized - COVID 19 nasopharyngeal negative on admission; biofire resp. viral panel negative - procal not elevated; no consolidation noted on CXR; UA normal. CT a/p showing no evidence of infection Thrombocytopenia - platelet level normal on admission (130), decreased to 91 on 06/06, up to 97 today - peripheral smear interpretation from blood draw from 06/05 (prior to any transfusion of blood products) - etiology is uncertain: no heparin use. no obvious source of infection. Will order HIV and Hep C. - well above transfusion threshold - trend CBC Elevated troponin - trop 0.13 on admission, has since downtrended - patient denies chest pain on exam - suspect secondary to demand ischemia given symptomatic anemia Dispo: PCU Diet: regular Code: Full DVT ppx: SCDs, chemical means contraindicated in setting of acute GI bleed Admission and Anticipated Discharge Date Admission Date: June 05, 2020 Supervising Physician Co-Signing Physician Notes Patient seen and examined independently of PGY-2 Dr. Dumont. Agree with history, exam findings, assessment and plan of care as outlined: In brief, Mr. Kenny is a 45 year old male with history of migraines, asthma and iron deficiency anemia admitted with acute anemia secondary to GI bleed. Had an episode of sustained SVT that was unresponsive vagal maneuvers and carotid massage. Received adenosine. Had liquid stool today. Vital signs and nursing notes reviewed. On exam, he is pale appearing. Tachycardic. 1. Acute anemia secondary to upper GI bleed. Transfused PRBCs. Monitoring hgb (8.9 yesterday-->7.9 today) and assess for rebleeding. EGD yesterday with GI showed reflux esophagitis, non-bleeding gastric ulcer and gastritis. Duodenal bx normal. Stomach bx with minimal chronic inflammation, H. Pylori stain is negative. PPI BID. IgA, TTG pending. Appreciate GI recommendations. If hemoglobin continues to drop, may need additional imaging. 2. Anemia. Ferritin low. Getting transfused with PRBCs and start IV venofer. B12 is borderlinegetting IM B12, folate level normal. 3. Thrombocytopenia. Appears to be new. Peripheral smear (done on blood from admission, prior to transfusion) showed adequate number of platelets with large platelets. No history of liver disease, medications that cause thrombocytopenia. ?viral infection (hep C, HIV, EBV). Low suspicion for HIT. We are repleting his borderline B12 level. 4. SVT, Tachycardia. Most likely worsened due to anemia. Received adenosine today for sustained SVT. Reported history of WPW, but we do not have an EKG where he is not tachycardic so difficult to assess for pre-excitation well. May have other episodes of SVTattempt vagal maneuvers, carotid massage and if needed, adenosine. Appreciate cardiology recommendations. 5. Low grade fever. Resolved. Leukocytosis resolved. COVID neg x 2. Influenza negative. 6. Vitamin D deficiency. Start Vitamin D supplementation. Dispo: pending clinical improvement. Subjective no acute events overnight. Patient says he has a known groin hernia and asks if it could be related to his bleeding, although states the groin does not hurt him at the time of exam. Review of Systems Genitourinary: + genital pain Physical Exam Constitutional: WD/WN, vitals as above cooperative; no acute distress Eyes: + anicteric sclerae ENMT: external ear and nose normal, oropharynx normal Neck: normal visual inspection and trachea midline Respiratory: normal respiratory effort, lungs clear to auscultation no cough Cardiovascular: Rate/Rhythm: regular rhythm and + tachycardic Heart Sounds: normal S1, normal S2 and + murmur (systolic ejection ) Gastrointestinal (Abdomen): normal bowel sounds, soft, nontender, no hepatosplenomegaly Skin: no rashes, warm and dry Psychiatric: A+Ox3, euthymic affect Results & Data Results & Data ([facility]) Vital Signs (Past 12 Hours) Vital Signs Temp Pulse Pulse Resp BP BP Pulse Ox 06/07/20 14:00 109 H 120/77 06/07/20 13:45 228 H 06/07/20 13:30 103 H 06/07/20 13:15 110 H 06/07/20 13:00 107 H 06/07/20 12:53 113 H 06/07/20 12:30 122 H 06/07/20 12:15 112 H 06/07/20 12:00 110 H 06/07/20 11:54 114 H 06/07/20 11:53 36.7 C 113 H 136/85 06/07/20 11:00 114 H 06/07/20 10:00 97 H 97 06/07/20 09:00 108 H 97 06/07/20 08:00 36.7 C 108 H 115 H 20 135/82 97 06/07/20 07:37 114 H 135/82 98 06/07/20 07:00 103 H 97 06/07/20 06:23 106 H 98 06/07/20 06:22 107 H 133/76 97 06/07/20 04:55 37.3 C 94 H 117/80 97 06/07/20 04:33 37.3 C 107 H 16 117/80 98 Resident Activity Tracking Resident Involvement: Resident Care Provided Care Provided: Adult Hospital Medicine
[2020-06-07] MEDS: CHOLECALCIFEROL 1,000 UNITS 25 MCG TAB PO SCH (16:17)
--- NOTE | 2020-06-07 16:30 | Cardiology Progress Note ---
Date of Service June 07, 2020 Assessment & Plan (1) SVT (supraventricular tachycardia): One episode of SVT this afternoon that responded to adenosine. He reports fairly frequent episodes of tachycardia over the years. I suspect we will see more episodes of tachycardia. Hopefully as his clinical condition improves these be less frequent and slower. I think we can still treat these as needed. Vagal maneuvers may be effective. Adenosine appears to be effective. (2) Elevated troponin: Demand related. Admission and Anticipated Discharge Date Admission Date: June 05, 2020 Subjective Overall patient claims to be feeling well. He is aware of a higher heart rate. No abdominal complaints. One episode of tachycardia this afternoon. Review of Systems Review of Systems: Per HPI Physical Exam Physical Exam: The patient is alert and oriented. Mood and affect appeared normal. He answered all questions appropriately. HEENT: Pupils are equal and reactive to light and accommodation. Extraocular movements are intact. The sclerae are anicteric. Neuro: Cranial nerves intact Lungs: Normal respiratory effort Cardiac: Heart demonstrates an increased heart rate but regular rhythm. Normal S1 and S2. No murmurs on examination. Pulses: The patient has palpable radial pulses bilaterally that are equal in intensity. Palpable carotid pulse. Extremities: There was no evidence of hypoperfusion. There is no cyanosis or clubbing. There is no edema. Skin: I did not appreciate any rashes on examination today. Results & Data ([facility]) Vital Signs (Past 12 Hours) Vital Signs Temp Pulse Pulse Resp BP BP Pulse Ox 06/07/20 15:38 115 H 06/07/20 15:30 36.7 C 128 H 06/07/20 15:15 116 H 06/07/20 15:01 125 H 154/78 H 06/07/20 15:00 121 H 06/07/20 14:45 115 H 06/07/20 14:31 119 H 152/96 H 06/07/20 14:30 122 H 06/07/20 14:15 111 H 06/07/20 14:00 109 H 120/77 06/07/20 13:45 228 H 06/07/20 13:30 103 H 06/07/20 13:15 110 H 06/07/20 13:00 107 H 06/07/20 12:53 113 H 06/07/20 12:30 122 H 06/07/20 12:15 112 H 06/07/20 12:00 110 H 06/07/20 11:54 114 H 06/07/20 11:53 36.7 C 113 H 136/85 06/07/20 11:00 114 H 06/07/20 10:00 97 H 97 06/07/20 09:00 108 H 97 06/07/20 08:00 36.7 C 108 H 115 H 20 135/82 97 06/07/20 07:37 114 H 135/82 98 06/07/20 07:00 103 H 97 06/07/20 06:23 106 H 98 06/07/20 06:22 107 H 133/76 97 06/07/20 04:55 37.3 C 94 H 117/80 97 06/07/20 04:33 37.3 C 107 H 16 117/80 98 Laboratory Results Abnormal Lab Results 06/05/20 06/05/20 06/06/20 12:14 13:22 20:55 WBC RBC Hgb 8.9 L Hct MCV MCH MCHC RDW Std Deviation RDW Coeff of Sherron Plt Count MPV Immature Gran % (Auto) Neut % (Auto) Lymph % (Auto) [place] % (Auto) Eos % (Auto) Baso % (Auto) Neut # (Auto) Lymph # (Auto) [place] # (Auto) Eos # (Auto) Baso # (Auto) Immature Gran # (Auto) Platelet Estimate Polychromasia Peripher Smr Path Cons Sodium Potassium Chloride Carbon Dioxide Anion Gap BUN Creatinine Est Cr Clr Drug Dosing Est GFR ( Amer) Est GFR (Non-Af Amer) BUN/Creatinine Ratio Glucose Calcium Phosphorus Magnesium 25-OH Vitamin D Total Hepatitis C Antibody Blood Type A Positive Antibody Screen NEGATIVE Crossmatch See Detail 06/07/20 06/07/20 06/07/20 04:29 04:29 07:10 WBC 8.20 RBC 2.57 L Hgb 7.9 L Hct 23.3 L MCV 90.7 MCH 30.7 MCHC 33.9 RDW Std Deviation 46.5 H RDW Coeff of Sherron 14.2 Plt Count 97 L MPV 12.5 H Immature Gran % (Auto) 0.1 Neut % (Auto) 66.1 Lymph % (Auto) 23.0 [place] % (Auto) 8.5 Eos % (Auto) 2.2 Baso % (Auto) 0.1 Neut # (Auto) 5.41 Lymph # (Auto) 1.89 [place] # (Auto) 0.70 H Eos # (Auto) 0.18 Baso # (Auto) 0.01 Immature Gran # (Auto) 0.01 Platelet Estimate Decreased L Polychromasia 1+ Peripher Smr Path Cons Sodium 145 Potassium 3.6 Chloride 116 H Carbon Dioxide 25 Anion Gap 4.0 BUN 6 L D Creatinine 0.59 L Est Cr Clr Drug Dosing 141.2 Est GFR ( Amer) 140.7 Est GFR (Non-Af Amer) 121.4 BUN/Creatinine Ratio 10.3 Glucose 112 H Calcium 7.1 L Phosphorus 2.4 L Magnesium 1.9 25-OH Vitamin D Total 18.3 L Hepatitis C Antibody Blood Type Antibody Screen Crossmatch 06/07/20 07:10 WBC RBC Hgb Hct MCV MCH MCHC RDW Std Deviation RDW Coeff of Sherron Plt Count MPV Immature Gran % (Auto) Neut % (Auto) Lymph % (Auto) [place] % (Auto) Eos % (Auto) Baso % (Auto) Neut # (Auto) Lymph # (Auto) [place] # (Auto) Eos # (Auto) Baso # (Auto) Immature Gran # (Auto) Platelet Estimate Polychromasia Peripher Smr Path Cons Sodium Potassium Chloride Carbon Dioxide Anion Gap BUN Creatinine Est Cr Clr Drug Dosing Est GFR ( Amer) Est GFR (Non-Af Amer) BUN/Creatinine Ratio Glucose Calcium Phosphorus Magnesium 25-OH Vitamin D Total Hepatitis C Antibody Neg Blood Type Antibody Screen Crossmatch PG Care Time/CCT Total # of Minutes Spent Total Time Spent with Patient: Total time spent is greater than 50% in coordination of care (as documented) at patient's floor/unit and/or counseling patient: Coding Level of Care Code 45531 Subseq Hosp Care Lvl 2 Diagnoses SVT (supraventricular tachycardia) I47.1 Elevated troponin R77.8
[2020-06-07] MEDS ORDERED: METOPROLOL TARTRATE 1 MG/ML VIAL IV ONE (19:17)
[2020-06-07] MEDS ORDERED: METOPROLOL TARTRATE 1 MG/ML VIAL IV STA (19:18)
[2020-06-08] MEDS: CHOLECALCIFEROL 1,000 UNITS 25 MCG TAB PO SCH (08:46)
[2020-06-08] MEDS: PANTOprazole 40 MG TAB PO SCH (08:46)
[2020-06-08] MEDS: FEXOFENADINE HCL 180 MG TAB PO SCH (08:46)
[2020-06-08] MEDS: FLUTICASONE PROPIONATE NA SPR 16 GM BTL SCH (08:46)
[2020-06-08] MEDS: CYANOCOBALAMIN 1000 MCG/ML VIAL IM SCH (08:47)
--- NOTE | 2020-06-08 09:48 | Cardiology Progress Note ---
Date of Service June 08, 2020 Assessment & Plan (1) SVT (supraventricular tachycardia): Two episodes yesterday. Both were treated with adenosine. Unclear these would of terminated on her own. He tolerated the episodes quite well despite very high heart rates. I did discuss the option of catheter based therapy. He seems interested. Can arrange this as an outpatient. His heart rate is improved likely due to his blood administration and volume resuscitation. I will obtain another EKG. If there is no evidence of pre-excitation with normal heart rates I think we could send him home on a low-dose of beta-kelly as well. (2) Elevated troponin: Demand related. Admission and Anticipated Discharge Date Admission Date: June 05, 2020 Subjective This morning patient claims to be feeling well. He had ambulated to the commode without significant dizziness. He denies any chest pain. He did have 2 episodes of tachycardia yesterday which he noticed as palpitations. However, he did not appear to have associated symptoms. His stool is still dark but somewhat dock operator. More formed. Review of Systems Review of Systems: Per HPI Physical Exam Physical Exam: The patient is alert and oriented. Mood and affect appeared normal. He answered all questions appropriately. HEENT: Pupils are equal and reactive to light and accommodation. Extraocular movements are intact. The sclerae are anicteric. Neuro: Cranial nerves intact Lungs: Normal respiratory effort Cardiac: Heart demonstrates an increased heart rate but regular rhythm. Normal S1 and S2. No murmurs on examination. Pulses: The patient has palpable radial pulses bilaterally that are equal in intensity. Palpable carotid pulse. Extremities: There was no evidence of hypoperfusion. There is no cyanosis or clubbing. There is no edema. Skin: I did not appreciate any rashes on examination today. Results & Data ([facility]) Vital Signs (Past 12 Hours) Vital Signs Pulse BP 06/08/20 04:00 73 06/08/20 03:20 76 104/63 06/08/20 03:00 77 06/08/20 02:20 89 126/78 06/08/20 02:00 81 06/08/20 01:20 89 122/75 06/08/20 01:00 93 H 06/08/20 00:20 88 108/69 06/08/20 00:00 100 H 06/07/20 23:21 103 H 113/77 06/07/20 23:00 90 06/07/20 22:20 101 H 133/81 06/07/20 22:00 101 H Laboratory Results Abnormal Lab Results 06/05/20 06/05/20 06/07/20 12:14 13:22 07:10 Hgb Peripher Smr Path Cons Hepatitis C Antibody Neg Blood Type A Positive Antibody Screen NEGATIVE Crossmatch See Detail 06/08/20 05:03 Hgb 9.3 L Peripher Smr Path Cons Hepatitis C Antibody Blood Type Antibody Screen Crossmatch PG Care Time/CCT Total # of Minutes Spent Total Time Spent with Patient: Total time spent is greater than 50% in coordination of care (as documented) at patient's floor/unit and/or counseling patient: Coding Level of Care Code 24096 Subseq Hosp Care Lvl 2 Diagnoses SVT (supraventricular tachycardia) I47.1 Elevated troponin R77.8
--- NOTE | 2020-06-08 09:59 | Discharge Summary ---
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 He also noted tachycardia 2 days ago when he first noted the dark stools. He had associated dyspnea when the tachycardia occurred. His tachycardia is particularly noticeable when he is trying to have a bowel movement. In between episodes of tachycardia and the dark stools he states "I feel fine." He then had tachycardia with dyspnea yesterday during another bowel movement episode. The stool was again once dark. Upon arrival to [facility] today hemoglobin VERY low at 6. He adamantly reports he has had NO melena or BRBPR on chronic basis prior to 2 days ago. He mentions a h/o "IBS" and chronic diarrhea. States that about 20 years ago he was diagnosed with "malnourishment" and Fe deficiency along with "some other deficiency." He denies ever having ablation or Rx for his WPW syndrome. Occasional motrin use for migraines but nothing on regular basis. By ER personnel report the patient had narrow complex tachycardia up to about 200 BPM after he got up to use the bathroom. While having a bowel movement the HR improved from 200 back down to 130s. Admission Exam Per Admitting Provider Constitutional: + thin; + not well developed, + not well nourished, no acute distress and no altered mental status Eyes: PERRL ENMT: Mouth: + tongue abnormality; oral mucous membranes not dry Neck: trachea midline, no thyromegaly Respiratory: normal respiratory effort, lungs clear to auscultation Cardiovascular: Rate/Rhythm: regular rhythm and + tachycardic Heart Sounds: normal S1 and normal S2; no murmur Vessels: posterior tibial pulses present and dorsalis pedis pulses present; no JVD Extremities: no edema Chest (Breasts): Chest: + abnormal inspection of chest (Very minimal pectus deformity ) Gastrointestinal (Abdomen): normal bowel sounds, soft, nontender, no hepatosplenomegaly Musculoskeletal: no cyanosis or clubbing, extremities motor strength 5/5 Spine: + scoliosis Skin: + pallor Neurologic: moves all extremities; no focal motor deficits Psychiatric: Orientation: alert and oriented x 3 Lymphatic: no cervical lymphadenopathy Principal Diagnosis GI bleed Discharge Exam Constitutional WD/WN, vitals as above cooperative; no acute distress Eyes + anicteric sclerae ENMT external ear and nose normal, oropharynx normal Neck normal visual inspection and trachea midline Respiratory normal respiratory effort, lungs clear to auscultation no cough Cardiovascular Rate/Rhythm: regular rhythm and + tachycardic Heart Sounds: normal S1, normal S2 and + murmur (systolic ejection ) Gastrointestinal (Abdomen) normal bowel sounds, soft, nontender, no hepatosplenomegaly Skin no rashes, warm and dry Psychiatric A+Ox3, euthymic affect Discharge Data Allergies Allergy/AdvReac Type Severity Reaction Status Date / Time Penicillins Allergy Mild Verified 06/06/20 15:16 aspirin AdvReac Unknown Unknown Unverified 06/05/20 11:48 Consultations 06/05/20 13:52 ED Decision to Admit Stat 06/05/20 17:02 Consult Cardiology Routine Consult Gastroenterology Routine Procedures Performed Operation Date: 06/06/20 17:15 Actual Procedures p EGD Biopsy Cytology - Terrence Carter Case, DO Ordered Studies 06/05/20 12:48 CT abd pelvis IV con only Stat Hospital Course (1) Acute upper gastrointestinal bleeding: Mr. Kenny is a 45 yo M prisoner who was admitted for gross melena and acute blood loss anemia on 06/05/20. He was transfused 2 units of pRBCs on arrival, to which his hemoglobin betty only by 1.6 (inappropriate response). He was transfused an additional 2 units, after which his hemoglobin appropriate responded (increase to 9.2). GI performed an upper endoscopy on 06/06, which showed evidence of reflux esophagitis, gastritis and a non-bleeding gastric ulcer. Pathology from EGD showed evidence of mild chronic inflammation in the stomach, H. pylori immunohistochemistry stain negative, normal duodenum mucosa. The source of his GI bleed was never elucidated, although we suspect a lower GI source. Hemoglobin trended up to 9.3 by the time of discharge. Acute upper gastrointestinal bleeding: - gross melena noted by ED attending; heme + stool noted - patient reports history of melena for 2 days preceding admission (but never before) - EGD on 06/06 (see results above) did reveal a gastric ulcer, although it was not actively bleeding, nor was there evidence of recent bleeding. Suspect lower GI source. - continue Protonix 40mg PO BID for 8 weeks. Decrease to once daily therapy thereafter Acute blood loss anemia - Hgb 6.0 on admission, MCV 92. Patient was transfused a total of units of pRBCs. Hgb increased to 9.3 by day of discharge. - not on a blood thinner or regular antiplatelet therapy (occasional aspirin use for headaches). coags normal. - iron level not checked, ferritin low at 13. B12 borderline. folate level normal. - patient received 2 doses of IV Venofer while inpatient. Continue Oral Ferrous Gluconate supplement at group home. - Patient received IM Vit B12 1,000mcg while inpatient. Continue either IM Vit B12 1,000mcg or oral vitamin B12, once daily. - it is possible both low ferritin and low vit B12 levels are secondary to malabsorption. Celiac testing pending. Outpatient items to do: Repeat CBC in 1-2 weeks. Repeat Ferritin and Vitamin B12 levels in 1 month. Follow up on Celiac panel drawn in hospital. Gastric Ulcer - identified on EGD; H.pylori immunohistochemistry stain negative - patient reported history of taking frequent NSAIDs for sinus headaches. Recommend avoiding NSAIDs in future. - continue protonix as above Tachycardia - HR has been elevated entire admission, likely secondary to anemia. However he did have 2 episodes of SVT while under our care, both of which resolved with Adenosine, 6mg, IV. - Patient reports going into "rapid heart beating," several times per week, which he can typically cortez with vagal maneuvers. Patient is well-versed with vagal maneuvers. - cardiology was consulted and recommend definitive management with elective ablation in the near future. In the interim, patient was directed to begin metoprolol tartrate 25mg BID to prevent future episodes. History of WPW (Suwfy-Nzrarzgtt-Rhpgp syndrome): - no prior ablation procedure - EKG reviewed, no delta wave or evidence of pre-excitation. - Low-dose beta blockade acceptable per cardiology to prevent SVT as above. Fever - resolved - Febrile on arrival (prior to pRBC transfusion); T max 38.2 - last fever was 06/06 ~ 4:30pm - WBC elevated to 12 on admission, has since normalized - COVID 19 nasopharyngeal negative on admission; biofire resp. viral panel negative - procal not elevated; no consolidation noted on CXR; UA normal. CT a/p showing no evidence of infection Thrombocytopenia - platelet level normal on admission (128K/uL), decreased to 91 on 06/06, up to 97 by discharge - peripheral smear on blood draw from 06/05 (prior to any transfusion of blood products) revealed large platelets without significant clumping. No evidence of dysplasia or malignancy - differential includes infection, drug reaction, nutritional deficiency, immune destruction or cirrhosis /splenic sequestration - CT of abdomen and pelvis showing no evidence of splenomegaly - no heparin or use while in hospital. not on antibiotics in hospital or prior to admission - no obvious source of infection (see 'fever' above). Hep C negative. HIV tested ordered, pending at the time of discharge. - LFTs not elevated, coags normal, no evidence of cirrhosis on CT of abdomen. - albumin level low at 2.7, patient with low ferritin and B12 - nutritional deficiency a possibility. Supplement as above Outpatient items to do: trend CBC as above. follow up on HIV test drawn in hospital Sinusitis - patient reported history of frequent sinus headaches and post nasal drip (reason why he takes NSAIDs, aspirin) - recommend use of daily Flonase and Luzmaria Vitamin D deficiency - level low at 18 - recommend cholecalciferol 1,000 IU, PO, daily Outpatient items to do: repeat vitamin D level in 3 months Elevated troponin - resolved - trop 0.13 on admission, has since downtrended - patient denies chest pain on exam - suspect secondary to demand ischemia given symptomatic anemia Total Time Total Time Spent Total Time Spent (In Minutes): see attending attestation Discharge Plan Discharge Items [facility]position[facility] Reason For Visit: SEVERE FE DEF ANEMIA, GI BLEEDING Discharge Diagnosis: Acute blood loss anemia Activity: Resume your previous activity Non-emergency contact: Primary Care Provider Call non-emergency contact if: your symptoms worsen Follow-up/Referrals: Joan ROMAN [Primary Care Provider] - Diet: Regular Addtl Attending Provider Instructions: Mr. Kenny is a 45 yo M prisoner who was admitted for gross melena and acute blood loss anemia on 06/05/20. He was transfused 2 units of pRBCs on arrival, to which his hemoglobin betty only by 1.6 (inappropriate response). He was transfused an additional 2 units, after which his hemoglobin appropriate responded (increase to 9.2). GI performed an upper endoscopy on 06/06, which showed evidence of reflux esophagitis, gastritis and a non-bleeding gastric ulcer. Pathology from EGD showed evidence of mild chronic inflammation in the stomach, H. pylori immunohistochemistry stain negative, normal duodenum mucosa. The source of his GI bleed was never elucidated, although we suspect a lower GI source. Hemoglobin trended up to 9.3 by the time of discharge. Acute upper gastrointestinal bleeding: - gross melena noted by ED attending; heme + stool noted - patient reports history of melena for 2 days preceding admission (but never before) - EGD on 06/06 (see results above) did reveal a gastric ulcer, although it was not actively bleeding, nor was there evidence of recent bleeding. Suspect lower GI source. - continue Protonix 40mg PO BID for 8 weeks. Decrease to once daily therapy thereafter Acute blood loss anemia - Hgb 6.0 on admission, MCV 92. Patient was transfused a total of units of pRBCs. Hgb increased to 9.3 by day of discharge. - not on a blood thinner or regular antiplatelet therapy (occasional aspirin use for headaches). coags normal. - iron level not checked, ferritin low at 13. B12 borderline. folate level normal. - patient received 2 doses of IV Venofer while inpatient. Continue Oral Ferrous Gluconate supplement at group home. - Patient received IM Vit B12 1,000mcg while inpatient. Continue either IM Vit B12 1,000mcg or oral vitamin B12, once daily. - it is possible both low ferritin and low vit B12 levels are secondary to malabsorption. Celiac testing pending. Outpatient items to do: Repeat CBC in 1-2 weeks. Repeat Ferritin and Vitamin B12 levels in 1 month. Follow up on Celiac panel drawn in hospital. Gastric Ulcer - identified on EGD; H.pylori immunohistochemistry stain negative - patient reported history of taking frequent NSAIDs for sinus headaches. Recommend avoiding NSAIDs in future. - continue protonix as above Tachycardia - HR has been elevated entire admission, likely secondary to anemia. However he did have 2 episodes of SVT while under our care, both of which resolved with Adenosine, 6mg, IV. - Patient reports going into "rapid heart beating," several times per week, which he can typically cortez with vagal maneuvers. Patient is well-versed with vagal maneuvers. - cardiology was consulted and recommend definitive management with elective ablation in the near future. In the interim, patient was directed to begin Metoprolol Tartrate 25mg, PO, BID to prevent future episodes. History of WPW (Hjvzq-Kxqsncgng-Jikxm syndrome): - no prior ablation procedure - EKG reviewed, no delta wave or evidence of pre-excitation. - Low-dose beta blockade acceptable per cardiology to prevent SVT as above. Fever - resolved - Febrile on arrival (prior to pRBC transfusion); T max 38.2 - last fever was 06/06 ~ 4:30pm - WBC elevated to 12 on admission, has since normalized - COVID 19 nasopharyngeal negative on admission; biofire resp. viral panel negative - procal not elevated; no consolidation noted on CXR; UA normal. CT a/p showing no evidence of infection Thrombocytopenia - platelet level normal on admission (128K/uL), decreased to 91 on 06/06, up to 97 by discharge - peripheral smear on blood draw from 06/05 (prior to any transfusion of blood products) revealed large platelets without significant clumping. No evidence of dysplasia or malignancy - differential includes infection, drug reaction, nutritional deficiency, immune destruction or cirrhosis /splenic sequestration - CT of abdomen and pelvis showing no evidence of splenomegaly - no heparin or use while in hospital. not on antibiotics in hospital or prior to admission - no obvious source of infection (see 'fever' above). Hep C negative. HIV tested ordered, pending at the time of discharge. - LFTs not elevated, coags normal, no evidence of cirrhosis on CT of abdomen. - albumin level low at 2.7, patient with low ferritin and B12 - nutritional deficiency a possibility. Supplement as above Outpatient items to do: trend CBC as above. follow up on HIV test drawn in hospital Sinusitis - patient reported history of frequent sinus headaches and post nasal drip (reason why he takes NSAIDs, aspirin) - recommend use of daily Flonase and Luzmaria Vitamin D deficiency - level low at 18 - recommend cholecalciferol 1,000 IU, PO, daily Outpatient items to do: repeat vitamin D level in 3 months Elevated troponin - resolved - trop 0.13 on admission, has since downtrended - patient denies chest pain on exam - suspect secondary to demand ischemia given symptomatic anemia Pending Studies at Discharge: Yes Stand-Alone Forms: My [facility] Skilled Items Patient informed of condition?: Yes Discharge Level of Care: Other Communicable Disease: No Discharge Prognosis: Stable Lines: None Urinary Catheter: No Medications and DC Order Prescriptions: New fexofenadine 180 mg Tablet 180 mg PO QAM 30 Days Qty: 30 RF: 0 pantoprazole 40 mg Tablet,Delayed Release (Dr/Ec) 40 mg PO BID 30 Days Qty: 60 RF: 0 cyanocobalamin (vitamin B-12) 1,000 mcg/mL Solution 1,000 mcg IM DAILY 30 Days Qty: 30 RF: 0 fluticasone propionate 50 mcg/actuation [employer],Suspension 2 spray NA DAILY PRN (Reason: allergy symptoms) 30 Days Qty: 9.9 RF: 0 cholecalciferol (vitamin D3) 25 mcg (1,000 unit) Capsule 1,000 unit PO QAM 30 Days RF: 0 metoprolol tartrate 25 mg tablet 25 mg PO BID 30 Days Qty: 60 RF: 0 No Action No Known Home Medications RF: 0 Discharge Orders: Discharge Order (Routine); Ordered 06/08/20 Ordered By: Thania Dumont Admission Data Admit Date/Time: 06/05/20 15:51 Attending Provider: Channing Petty Admit Provider: Ishmael Adams Primary Care Provider: Joan ROMAN Other Providers: Ishmael Adams ; Channing Ross ; Terrence Franco Other Interventions: Discharge Summary Assessment (RN) Last Done: 06/08/20 14:16 Supervising Physician Co-Signing Physician Notes Attending attestation Pt seen and examined in concert with Dr. Dumont. In agreement with the documented findings as noted in the resident documentation with any exceptions or additions as noted here. Resting comfortably in bed with improved fatigue and minimal tachycardia complaint following adenosine treatment. On examination, S1/S2 nl, IRR/IRR, no MCG. CTAB. Abd NT/ND BS+ve Acute anemia 2/2 UGIB - stable Hgb following transfusion s/p EGD, iron supplementation, B12 supplementation. Continue PPI therapy as noted. Tachycardia w/ reported h/o WPW - cardiology consultation - candidate for outpatient ablation w/ cardiology follow up. Agree w/ metoprolol. Thrombocytopenia - without apparent cause on evaluation, would recommend continued evaluation on outpatient follow up Else see resident documentation as noted. Resident Activity Tracking Resident Involvement: Resident Care Provided Care Provided: Adult Hospital Medicine
--- NOTE | 2020-06-08 12:55 | Electrocardiogram Report ---
Test Reason : Blood Pressure : / mmHG Vent. Rate : 122 BPM Atrial Rate : 122 BPM P-R Int : 136 ms QRS Dur : 084 ms QT Int : 328 ms P-R-T Axes : 048 -08 030 degrees QTc Int : 467 ms Sinus tachycardia Minimal voltage criteria for LVH, may be normal variant ( R in aVL ) Borderline ECG When compared with ECG of 05-JUN-2020 11:20, No significant change was found Confirmed by Omi Ross ([id number]) on 06/08/2020 12:54:56 PM Referred By: [facility] Confirmed By:Rudolph Ross
[2020-06-08] MEDS ORDERED: FEXOFENADINE HCL 180 MG TAB PO SCH (15:15)
[2020-06-08] MEDS ORDERED: PANTOprazole 40 MG TAB PO SCH (15:15)
[2020-06-08] MEDS ORDERED: METOPROLOL TARTRATE 25 MG TAB PO SCH ×2 (15:30→21:00)
[2020-06-09 00:04] LABS: IgA Serum 110 mg/dL (47-310); Tis Trans IgA 1 U/mL
== END 2020-06-08 17:06 | DRG 811 ==
LOC: ED 11:15 → 1E 15:51 → SUATTDRO 15:51 → 1E 16:12